=== PATIENT | female | born 1945 | race Caucasian/White ===

== ENCOUNTER → 2018-07-04 09:39 | Outpatient (CLI) | payer MEDICARE, OTHER, SELFPAY | PROVIDERS: Family Provider Family Medicine; PCP Family Medicine; Visit Provider Nurse Practitioner Women's Health | DX: Z12.31 Encounter for screening mammogram for malignant neoplasm of breast (principal); Z80.3 Family history of malignant neoplasm of breast | CPT/HCPCS: 77063; 77067 ==

== ENCOUNTER → 2019-07-10 10:19 | Outpatient (CLI) | payer MEDICARE, SELFPAY ==
--- NOTE | 2019-07-10 10:24 | BI_ITS ---
MAMMOGRAPHY - BILATERAL SCREENING REASON FOR EXAM: Female, 73 years old. Routine annual screening examination. PERTINENT HISTORY: Mother with breast cancer. TECHNIQUE: Digital bilateral breast guilherme (3D mammographic acquisition) in the CC and MLO projections. 2-D mediolateral oblique (MLO) and craniocaudad (CC) views of both breasts were obtained. CAD: Full Field Digital Mammography with Computer Added Detection was performed. COMPARISON: Comparison is made with prior examination July 04, 2018 and June 30, 2017. FINDINGS: Breast Composition: There are scattered areas of fibroglandular density. There are no dominant masses or suspicious calcifications. No other significant abnormalities are identified. There has been no significant change since the prior study. BI/SCREEN MAMM (CAD) W/GUILHERME BILAT IMPRESSION: Stable bilateral screening mammogram. Yearly follow-up mammogram recommended. (A) ASSESSMENT CATEGORY: BIRADS Category 2: Benign. A letter regarding these results will be sent to the patient by the facility within 30 days. Approximately 10% of breast cancers are not detected by mammography. A normal mammogram should not delay biopsy of a clinically suspicious abnormality. [id number] Electronically Signed: Koko Rodrigues, at 11:21 EDT , Service support ,
== END ==
PROVIDERS: Family Provider Family Medicine; PCP Family Medicine; Referring Provider Nurse Practitioner Women's Health; Visit Provider Nurse Practitioner Women's Health
DX: Z12.31 Encounter for screening mammogram for malignant neoplasm of breast (principal)
CPT/HCPCS: 77063; 77067

== ENCOUNTER → 2020-07-09 07:44 | Outpatient (CLI) | payer MEDICARE, SELFPAY ==
[2019-08-09 08:58] VITALS: BMI 27.6
--- NOTE | 2020-07-09 07:47 | BI_ITS ---
MAMMOGRAPHY - BILATERAL SCREENING REASON FOR EXAM: Female, 74 years old. Routine annual screening examination. PERTINENT HISTORY: Mother with breast cancer. TECHNIQUE: Digital bilateral breast guilherme (3D mammographic acquisition) in the CC and MLO projections. 2-D mediolateral oblique (MLO) and craniocaudad (CC) views of both breasts were obtained. CAD: Full Field Digital Mammography with Computer Added Detection was performed. COMPARISON: Comparison is made with prior examination is 07/10/2019 and 07/04/2018. FINDINGS: Breast Composition: There are scattered areas of fibroglandular density. There are no dominant masses or suspicious calcifications. No other significant abnormalities are identified. There has been no significant change since the prior study. BI/SCREEN MAMM (CAD) W/GUILHERME BILAT IMPRESSION: Stable bilateral screening mammogram. Yearly follow-up mammogram recommended. (A) ASSESSMENT CATEGORY: BIRADS Category 1: Negative. A letter regarding these results will be sent to the patient by the facility within 30 days. Approximately 10% of breast cancers are not detected by mammography. A normal mammogram should not delay biopsy of a clinically suspicious abnormality. [id number] Electronically Signed: Koko Rodrigues, at 8:57 EDT , Service support ,
== END ==
PROVIDERS: PCP Family Medicine; Referring Provider Nurse Practitioner Women's Health; Visit Provider Nurse Practitioner Women's Health
DX: Z12.31 Encounter for screening mammogram for malignant neoplasm of breast (principal); Z80.3 Family history of malignant neoplasm of breast
CPT/HCPCS: 77063; 77067

== ENCOUNTER → 2021-07-16 11:18 | Outpatient (CLI) | payer MEDICARE, SELFPAY ==
--- NOTE | 2021-07-16 11:21 | BI_ITS ---
MAMMOGRAPHY - BILATERAL SCREENING REASON FOR EXAM: Female, 75 years old. Routine annual screening examination. PERTINENT HISTORY: Mother with breast cancer. TECHNIQUE: Digital bilateral breast guilherme (3D mammographic acquisition) in the CC and MLO projections. 2-D mediolateral oblique (MLO) and craniocaudad (CC) views of both breasts were obtained. CAD: Full Field Digital Mammography with Computer Added Detection was performed. COMPARISON: Comparison is made with prior examination of 07/09/2020 and 07/10/2019. FINDINGS: Breast Composition: There are scattered areas of fibroglandular density. There are no dominant masses or suspicious calcifications. No other significant abnormalities are identified. There has been no significant change since the prior study. BI/SCRN MAMM (CAD)W/GUILHERME BILAT IMPRESSION: Stable bilateral screening mammogram. Yearly follow-up mammogram recommended. (A) ASSESSMENT CATEGORY: BIRADS Category 1: Negative. A letter regarding these results will be sent to the patient by the facility within 30 days. Approximately 10% of breast cancers are not detected by mammography. A normal mammogram should not delay biopsy of a clinically suspicious abnormality. [id number] Electronically Signed: Koko Rodrigues MD at 11:55 EDT , Service support ,
== END ==
PROVIDERS: PCP Family Medicine; Referring Provider Nurse Practitioner Women's Health; Visit Provider Nurse Practitioner Women's Health
DX: Z12.31 Encounter for screening mammogram for malignant neoplasm of breast (principal); Z80.3 Family history of malignant neoplasm of breast
CPT/HCPCS: 77063; 77067

== ENCOUNTER → 2021-11-05 08:46 | Outpatient (CLI) | payer MEDICARE, SELFPAY ==
--- NOTE | 2021-11-05 08:49 | BD_ITS ---
STUDY: DUAL ENERGY X-RAY ABSORPTIOMETRY / DXA REASON FOR EXAM: Female, 75 years old. Postmenopausal TECHNIQUE: Bone Mineral Density (BMD) measurements of lumbar spine and bilateral hips were obtained. COMPARISON: None. FINDINGS: Lumbar Spine (L1-L4): g/cm2 (1.178) / T-score (1.5) / Z-score (3.7) Findings are suggestive of normal bone density with a low fracture risk. Left Femur Total: g/cm2 (1.046) / T-score (0.9) / Z-score (2.6) Left Femoral Neck: g/cm2 (0.786) / T-score (-0.6) / Z-score (1.4) Right Femur Total: g/cm2 (1.063) / T-score (1.0) / Z-score (2.7) Right Femoral Neck: g/cm2 (0.851) / T-score (0.0) / Z-score (2.0) BD/Dexa Bone Density Study IMPRESSION: The patient is considered normal as outlined below according to World Johny Organization (WHO) criteria with a low fracture risk. Reference Information: The T-score is the number of standard deviations above or below the standard which is normal for young adults at their peak bone mineral density. The World Health Organization (WHO) interprets the T-scores as follows: Above -1 Normal bone density Between -1 and -2.5 Osteopenia Equal to / or below -2.5 Osteoporosis As a practical clinical guideline, osteopenia may be graded as follows: Mild -1 through -1.5 Moderate -1.6 through -2.0 Severe -2.1 through -2.4 The Z-score is the number of standard deviations above or below age-matched controls. A Z-score of less than -1.5 would be considered abnormal. References: 1. NIH Osteoporosis and Related Bone Diseases www osteo.org 2. International Society for Clinical Densitometry www iscd.org 3. National Osteoporosis Foundation www nof.org Electronically Signed: Koko Rodrigues MD at 9:06 EST , Service support ,
== END ==
PROVIDERS: PCP Family Medicine; Referring Provider Nurse Practitioner Women's Health; Visit Provider Nurse Practitioner Women's Health
DX: Z78.0 Asymptomatic menopausal state (principal)
CPT/HCPCS: 77080

== ENCOUNTER → 2022-09-23 | Outpatient (CLI) | payer MEDICARE, SELFPAY ==
--- NOTE | 2022-09-23 12:18 | BI_ITS ---
MAMMOGRAPHY - BILATERAL SCREENING REASON FOR EXAM: Female, 76 years old. Routine annual screening examination. PERTINENT HISTORY: Mother with breast cancer. TECHNIQUE: Digital bilateral breast guilherme (3D mammographic acquisition) in the CC and MLO projections. 2-D mediolateral oblique (MLO) and craniocaudad (CC) views of both breasts were obtained. CAD: Full Field Digital Mammography with Computer Added Detection was performed. COMPARISON: Comparison is made with prior study dated 07/16/2021 and 07/09/2020. FINDINGS: Breast Composition: There are scattered areas of fibroglandular density. There are no dominant masses or suspicious calcifications. There is a 5.6 mm x 5 mm well-defined nodule in the upper anterior lateral aspect of the right breast. This most likely represents a small lymph node. Correlation with ultrasound is recommended. No other significant abnormalities are identified. BI/SCRN MAMM (CAD)W/GUILHERME BILAT IMPRESSION: 5.6 mm x 5 mm well-defined nodule in the upper anterior aspect the right breast as described. Correlation with ultrasound is recommended. ASSESSMENT CATEGORY: BIRADS Category 1: Negative. A letter regarding these results will be sent to the patient by the facility within 30 days. Approximately 10% of breast cancers are not detected by mammography. A normal mammogram should not delay biopsy of a clinically suspicious abnormality. [id number] Electronically Signed: Koko Rodrigues MD at 13:57 EST ,
== END | disposition home or self-care (01) ==
LOC: OPBI 12:17
PROVIDERS: PCP Family Medicine; Visit Provider Nurse Practitioner Women's Health
DX: Z12.31 Encounter for screening mammogram for malignant neoplasm of breast (principal); Z80.3 Family history of malignant neoplasm of breast
CPT/HCPCS: 77063; 77067

== ENCOUNTER → 2022-10-05 | Outpatient (CLI) | payer MEDICARE, OTHER, SELFPAY ==
--- NOTE | 2022-10-05 10:28 | US_ITS ---
STUDY: ULTRASOUND BREAST - RIGHT REASON FOR EXAM: Female, 76 years old. Abnormal screening mammogram. TECHNIQUE: Axial and longitudinal images of the RIGHT breast were performed with a high resolution ultrasound transducer. # OF IMAGES: 21 COMPARISON: Comparison is made with prior mammogram dated 09/23/2022. FINDINGS: RIGHT Breast: 6 mm x 5 mm x 4 mm hypoechoic irregular nodule at the 10 o''clock position of the breast at 2 cm from the nipple. Biopsy is recommended. There is also a 6 mm x 6 mm x 4 mm well-defined hypoechoic nodular density at the 11 o''clock position in the breast 4 cm from nipple. This most likely represents hemorrhagic cyst although tissue sampling is recommended. US/Breast Limited Unilateral IMPRESSION: 6 mm x 5 mm x 4 mm hypoechoic irregular nodule at the 10 o''clock position of the breast at 2 some some nipple. Biopsy recommended. 6 mm x 6 mm x 4 mm well-defined hypoechoic nodule at the 11 o''clock position of the breast at 4 cm from nipple. Tissue sampling is recommended. ASSESSMENT CATEGORY: BIRADS Category 4: Suspicious - Biopsy Should Be Considered. A letter regarding these results will be sent to the patient by the facility within 30 days. Electronically Signed: Koko Rodrigues MD at 12:25 EST ,
== END | disposition home or self-care (01) ==
LOC: OPBI 10:26
PROVIDERS: PCP Family Medicine; Referring Provider Nurse Practitioner Women's Health; Visit Provider Nurse Practitioner Women's Health
DX: N63.0 Unspecified lump in unspecified breast (principal); R92.2 Inconclusive mammogram
CPT/HCPCS: 76642

== ENCOUNTER → 2022-10-21 | Outpatient (CLI) | payer MEDICARE, OTHER, SELFPAY ==
--- NOTE | 2022-10-21 | IMM_PTH ---
PATIENT: GAIL ORTEGA LOC: [facility] U#:[id number] AGE/SX: 76/F ROOM: RE10/21/[address]: Dr. Bruce Domínguez MD : 1945 BED: DIS: 10/21/2022 SPEC #: [id number] RECD: 10/22/22 14:44 STATUS: ESA REQ #: [id number] TABITHA: 10/21/22 00:[address]: Bruce Domínguez DEPT: IMMUNOHISTOCHEMISTRY RECD BY: Orly Guerrero ENTERED: 10/22/22 14:45 SP TYPE: IMMUNO OTHR DR: Dr. Salomon Tong, Tissues: A - Right breast, NOS Procedures: CALPONIN-1 (add) CK5-6 (add) CK8 (add) ROMAN-2 (add) E-CAD (add) HER2 SHAILESH (add) OK (add) P40 (add) ER (initial) PHYSICIAN & INSTITUTION [address] [address] SPECIMEN INFORMATION: Tissue Source: A ? Right breast biopsy 10 o?clock, 2 cm from nipple Clinical Info: Right breast lesions x2 Specimen Number: [id number] CPT code: 86755, 38129 x7, 99645 x3 METHODOLOGY: Deparaffinized sections of prefer/formalin-fixed tissue or PAP/DQ stained slides are incubated with monoclonal/polyclonal antibodies/oligonucleotide probes. Localization is made via biotin free immunoperoxidase method. Appropriate controls are performed and reacted as expected. Results on target cell population are indicated in the following table: RESULTS: ANTIBODY / CLONE RESULT Block A P53 (DO-7) negative Ki-67 (30-9) positive, 15% CK8 (97rnulI10) positive CK5-6 (D5 & 1684) negative Calponin-1 (BG570T) negative P40 (BC28) negative E-Cad (ECH-6) positive ROMAN-2 (SP21) negative MORPHOMETRIC ANALYSIS ER (clone 6F11) 50%, weak to moderate intensity OK (clone 16/1E2) 55%, weak to moderate intensity Her-2Neu (clone CB11) 0-1+ The prognostic test for HER2 is performed on formalin-fixed paraffin embedded tissue. A 3+ (positive) staining pattern is defined as intense, homogeneous, complete, circumferential membranous staining in >10% of contiguous tumor cells. A similar weak (2+) staining pattern is interpreted as equivocal. SWATI follow-up testing is recommended for all equivocal cases. Positivity/negativity for ER/OK is reported if > or < 1% of the tumor cells are immuno- reactive, respectively. The ASCO/CAP criteria is used for scoring. Reference: Journal of Clinical Oncology, 2013; 31:5635-4346 & 2010; 16:4831-4316. Duration of fixation: 10.5 Hrs; Sample Adequate: Yes. These assays have not been validated on decalcified tissues. Results should be interpreted with caution given the likelihood of false negativity on decalcified specimens. These tests were developed and their performance characteristics determined by [facility]. They may not have been cleared or approved by the U.S. Food and Drug Administration. The FDA has determined that such clearance or approval is not necessary. The above immunohistochemical/dualISH markers are ordered and reviewed by the Pathologist. INTERPRETATION: A. Right breast biopsy at 10 o?clock, core biopsy: Invasive ductal carcinoma, nuclear grade I. Positive for estrogen receptors (favorable prognostic indicator). Positive for progesterone receptors (favorable prognostic indicator). Negative for overexpression of VFF3tmo. AM:kaity 10/25/2022
--- NOTE | 2022-10-21 07:51 | US_ITS ---
STUDY: ULTRASOUND BREAST - RIGHT REASON FOR EXAM: Female, 76 years old. Ultrasound guided breast biopsy. TECHNIQUE: Axial and longitudinal images of the RIGHT breast were performed with a high resolution ultrasound transducer. # OF IMAGES: 0 COMPARISON: Comparison is made with prior ultrasound dated 10/05/2022. FINDINGS: RIGHT Breast: Under direct sonographic guidance, the surgeon performed 3 core biopsies of the 6 mm x 5 mm x 4 mm hypoechoic nodule at the 10 o''clock position of the breast at 2 cm from the nipple. IMPRESSION: Ultrasound guided biopsy of the 6 mm x 5 mm x 4 mm hypoechoic nodule at the 10 o''clock position of the breast at 2 cm from the nipple. ASSESSMENT CATEGORY: BIRADS Category 2: Benign. A letter regarding these results will be sent to the patient by the facility within 30 days. Electronically Signed: Koko Rodrigues MD at 15:21 EST , STUDY: ULTRASOUND BREAST - RIGHT REASON FOR EXAM: Female, 76 years old. Ultrasound guided breast biopsy. TECHNIQUE: Axial and longitudinal images of the RIGHT breast were performed with a high resolution ultrasound transducer. # OF IMAGES: 0 COMPARISON: Comparison is made with prior sonogram dated 10/05/2022. FINDINGS: RIGHT Breast: Under sonographic guidance, the surgeon performed 4 core biopsies of the 6 mm x 6 mm x 4 mm hypoechoic solid nodule at the 11 o''clock position of the breast at 4 cm from the nipple. US/US Breast Biopsy 1st Lesion IMPRESSION: Successful ultrasound-guided core biopsies of the hypoechoic nodule at the left o''clock position of the breast at 4 cm from nipple. ASSESSMENT CATEGORY: BIRADS Category 2: Benign. A letter regarding these results will be sent to the patient by the facility within 30 days. Electronically Signed: Koko Rodrigues MD at 15:23 EST ,
--- NOTE | 2022-10-21 08:45 | BRBX_PTH ---
PATIENT: GAIL ORTEGA LOC: [facility] U#:[id number] AGE/SX: 76/F ROOM: RE10/21/[address]: Dr. Bruce Domínguez MD : 1945 BED: DIS: 10/21/2022 SPEC #: [id number] RECD: 10/21/22 09:21 STATUS: ESA REQ #: [id number] TABITHA: 10/21/22 08:[address]: Bruce Domínguez DEPT: SURGICAL PATHOLOGY RECD BY: Viridiana Javed ENTERED: 10/21/22 11:22 SP TYPE: BREAST BX OTHR DR: Dr. Salomon Tong, DO Tissues: A - Right breast, NOS B - Right breast, NOS Procedures: Surgery Specimen Level IV HEADER OPERATION: Right breast biopsy PRE-OP DIAGNOSIS: Right breast lesions x2 TISSUE SUBMITTED: A - Right breast biopsy 10 o?clock, 2 cm from nipple, B - Right breast biopsy 11 o?clock, 4 cm from nipple MICROSCOPIC DIAGNOSIS A. Right breast at 10 o?clock, needle core biopsy: Invasive ductal carcinoma with the follow characteristics: Nuclear grade - 1/3 Maximal length ? 5 mm See comment. B. Right breast at 11 o?clock, needle core biopsy: Fibrocystic change. AM:kaity 10/22/2022 COMMENT A. Immunohistochemistry ([id number]) supports the above diagnosis. Case has been reviewed in consultation with Dr. Davis who concurs with the above diagnosis. IDC:SJ MICROSCOPIC DESCRIPTION Slides are reviewed. GROSS DESCRIPTION A - Received in fixative is one container labeled with the patient's name and designated right breast biopsy 10 o?clock, 2 cm from nipple. The specimen consists of two elongated fragments of pang-yellow fibroadipose tissue that in aggregate measure 1 x 0.2 x 0.1 cm. The entire specimen is submitted in one cassette. B - Received in fixative is one container labeled with the patient's name and designated right breast biopsy 11 o?clock, 4 cm from nipple. The specimen consists of two elongated fragments of pang-yellow fibroadipose tissue that in aggregate measure 2.5 x 1 x 0.1 cm. The entire specimen is submitted in one cassette. / ALEJANDRO:kaity 10/21/2022 TC: 0 CPT: 12556 x2
--- NOTE | 2022-10-21 10:30 | PCM.OP.PRO ---
Procedure Report Date of Procedure: 10/21/22 Procedure: Core needle biopsy of right breast for BI-RADS 4 lesions x2 Description: After a detailed discussion regarding the risks and benefits of the biopsy procedure, the patient positioned supine in the exam chair. Formal, written consents were obtained prior to positioning. Ultrasound was used to localize the lesions in the upper outer quadrant of the right breast. Locally 1% lidocaine was infiltrated about the 10:00 mass mass using ultrasound guidance. Once the area was sufficiently anesthetized, a small stab incision was made in the skin and the mammotome core needle device was introduced percutaneously. Ultrasound was used to guide the tip of the device to the inferior border of the suspicious lesion. Then the mass was serially sampled with 4 cores which were placed in solution for pathologic processing. A marking clip with a coil shaped was then placed under ultrasound guidance in the lateral aspect of the mass. I then localized the 11:00 mass and proceeded to locally anesthetized the area with 1% lidocaine under ultrasound guidance. Here the tissue appeared denser and the mass itself appeared firmer so I elected to proceed with the Flypaper Cormax device. Under ultrasound guidance the needle was positioned just outside and lateral of the mass and deployed resulting in a nice tissue core. This procedure was repeated, but unfortunately the device malfunctioned and we did not get a core so it was repeated a second time?this time resulting in another complete tissue core which was submitted for pathology. A second marker?this time he twisted ribbon confirmation?was placed just lateral to this mass and the volleyball player obtained a industrial relations representative picture of this marker. Pressure was applied until hemostasis was obtained. The skin was cleaned and Steri-Strips were applied over the stab incision for the biopsy procedure. Patient tolerated the procedure with no complications. EBL: Less than 5 mL Complications: None
== END | disposition home or self-care (01) ==
LOC: OPUS 07:48
PROVIDERS: PCP Family Medicine; Visit Provider Surgery
DX: N63.11 Unspecified lump in the right breast, upper outer quadrant (principal)
CPT/HCPCS: 19083; 19084; 88305; 88341; 88342

== ENCOUNTER 2022-11-10 08:55 | Day surgery (SDC) | payer MEDICARE, OTHER, SELFPAY ==
--- NOTE | 2022-11-10 | IMM_PTH ---
PATIENT: GAIL ORTEGA LOC: [facility] [place] U[place][id number] AGE/SX: 76/F ROOM: RE11/10/[address]: Dr. Bruce Domínguez MD : 1945 BED: DIS: 11/10/2022 SPEC #: [id number] RECD: 11/15/22 14:46 STATUS: ESA REQ #: [id number] TABITHA: 11/10/22 00:[address]: Bruce Domínguez DEPT: IMMUNOHISTOCHEMISTRY RECD BY: Orly Guerrero ENTERED: 11/15/22 14:47 SP TYPE: IMMUNO OTHR DR: Dr. Salomon Tong, Tissues: A - Axillary lymph node, NOS B - Right breast, NOS Procedures: CK8 (initial) CK7 (add) CK8 (add) E-CAD (add) Pankeratin (add) CK7 (initial) PHYSICIAN & INSTITUTION [place] [address] SPECIMEN INFORMATION: Tissue Source: A ? Right sentinel node x2, B ? Right breast lump tissue Clinical Info: Right breast cancer Specimen Number: [id number] A1, A2, B5 & B6 CPT code: 29052 x2, 49059 x6 METHODOLOGY: Deparaffinized sections of prefer/formalin-fixed tissue or PAP/DQ stained slides are incubated with monoclonal/polyclonal antibodies/oligonucleotide probes. Localization is made via biotin free immunoperoxidase method. Appropriate controls are performed and reacted as expected. Results on target cell population are indicated in the following table: RESULTS: ANTIBODY / CLONE RESULT Block A1 CK7 (OV-TL12/30) negative AE1-3 (AE1/AE3/PCK26) negative Block A2 CK7 (OV-TL12/30) negative AE1-3 (AE1/AE3/PCK26) negative Block B5 CK8 (13inxlN11) positive E-Cad (ECH-6) positive Block B6 CK8 (46hmuwL39) positive E-Cad (ECH-6) positive These tests were developed and their performance characteristics determined by [facility]. They may not have been cleared or approved by the U.S. Food and Drug Administration. The FDA has determined that such clearance or approval is not necessary. The above immunohistochemical/dualISH markers are ordered and reviewed by the Pathologist. INTERPRETATION: A. Right sentinel node x2, biopsy: Two out of two lymph nodes, negative for metastatic carcinoma. B. Right breast lump tissue: Invasive ductal carcinoma. SJ:kaity 11/16/2022
--- NOTE | 2022-11-10 | AXNB_PTH ---
PATIENT: GAIL ORTEGA LOC: [facility] [place] U#:[id number] AGE/SX: 76/F ROOM: RE11/10/[address]: Dr. Bruce Domínguez MD : 1945 BED: DIS: 11/10/2022 SPEC #: [id number] RECD: 11/10/22 15:01 STATUS: ESA RE #: [id number] TABITHA: 11/10/22 00:[address]: Bruce Domínguez DEPT: SURGICAL PATHOLOGY RECD BY: Orly Guerrero ENTERED: 11/10/22 15:53 SP TYPE: AX NODE BX OTHR DR: Dr. Salomon Tong DO Tissues: A - Axillary lymph node, NOS B - Right breast, NOS C - Right breast, NOS Procedures: Frozen Section (charge) Frozen Section Add'l ([facility]) Surgery Specimen Level IV Surgery Specimen Level V HEADER OPERATION: Right breast lumpectomy, stereotactic needle localization, sentinel lymph node PRE-OP DIAGNOSIS: Right breast cancer TISSUE SUBMITTED: A - Right sentinel node x2, FS, B - Right breast lump tissue, short stitch - superior, long stitch - lateral, C - Additional breast tissue, short stitch - superior margin, long stitch - lateral margin FROZEN SECTION DIAGNOSIS A. Right sentinel lymph nodes, biopsy: Two out of two lymph nodes, negative for metastatic carcinoma. :kaity 11/10/2022 MICROSCOPIC DIAGNOSIS A. Right sentinel lymph nodes, biopsy: Two out of two lymph nodes, negative for metastatic carcinoma. See comment. B. Right breast, lumpectomy with needle localization: Invasive ductal carcinoma. See cancer summary in the comment section. C. Additional breast tissue: Negative for carcinoma. :kaity 11/15/2022 COMMENT A. The lymph nodes are negative for metastatic carcinoma on multiple H & E levels and immunohisto-chemical stains for cytokeratins ([id number]). B. Immunohistochemistry ([id number]) supports the diagnosis of invasive ductal carcinoma. B. INVASIVE BREAST CANCER SUMMARY: Procedure - excision with needle localization Special Laterality - right Tumor Site ? 10 o?clock, 2 cm from nipple Tumor Size ? 0.7 x 0.8 cm (measured microscopically) Histologic type - invasive ductal carcinoma, no special type. Histologic Grade (Miriam grade): Glandular/tubular differentiation - score 3 Nuclear pleomorphism - score 1 Mitotic count ? score 1 Overall grade - 1 (score of 5) Tumor focality ? single focus of invasive carcinoma. Ductal carcinoma in situ ? not identified Lobular carcinoma in situ (LCIS) - not identified Tumor extension: Skin ? skin is not present. Nipple ? not applicable Skeletal muscle ? no skeletal muscle is present. Margins: Invasive carcinoma margin ? the tumor is 0.3 cm away from inferior margin and 0.4 cm away from the next closest lateral margin. Regional Lymph Nodes: Number of sentinel lymph nodes examined - 2 Total number of lymph nodes examined (sentinel and non-sentinel) - 2 Number of lymph nodes with macrometastases, micrometastases and isolated tumor cells - 0 Treatment effect - no known presurgical therapy. Lymphvascular invasion - not identified Dermal lymphvascular invasion - not applicable Distant metastasis - not applicable Additional pathologic findings ? fibrocystic changes and intraductal hyperplasia without atypia. Changes consistent with previous biopsy site. Ancillary studies - previously performed on section of tumor ([id number] / [id number]). ER ? positive (50%, weak to moderate intensity) TX - positive (55%, weak to moderate intensity) Her2 boris ? negative (0-1%) PATHOLOGIC STAGE: pT1b pN0(sn) pMx The above summary is in compliance with [employer] (CAP) Cancer Protocols Checklist and [place] [employer] Committee on Cancer (AJCC), Staging Manual, 8th Ed. This case is discussed with Dr. Domínguez on 11/16/22. Case has been reviewed in consultation with Dr. Chase who concurs with the above diagnosis. IDC:AM MICROSCOPIC DESCRIPTION Slides are reviewed. GROSS DESCRIPTION A - Received fresh for frozen section diagnosis labeled with the patient's name is a specimen designated right sentinel lymph node. The specimen consists of a piece of adipose tissue measuring 3 x 2.5 x 1 cm. Two nodules consistent with lymph nodes are identified measuring 0.8 and 1 cm in greatest dimension. The lymph nodes are submitted in entirety for frozen section diagnosis as follows: 1 ? one lymph node, 2 ? one bisected lymph node. Sections are submitted after additional fixation. / SJ:kaity 11/10/2022 B - Received fresh for intraoperative consultation labeled with the patient's name and designated right breast lump tissue. The specimen consists of a piece of fibroadipose tissue with needle localization measuring 4 x 4 x 2 cm. The specimen is oriented as follows: short stitch - superior, long stitch - lateral. The specimen is inked as follows: anterior - yellow, posterior - black, superior - blue, inferior - green, medial - red and lateral - orange. Serial sections reveal a hemorrhagic cavity measuring 0.7 cm in greatest dimension. This cavity is 0.2 cm away from the closest medial margin. No obvious mass is identified. This information is conveyed to the surgeon intraoperatively. Sections of the rest of the specimen reveal pang-yellow adipose cut surfaces mixed with pang-white fibrous areas. The entire specimen is submitted in nine cassettes. Sections are submitted after additional fixation. / SJ:kaity 11/11/2022 C - Received in fixative is one container labeled with the patient's name and designated additional breast tissue, short stitch - superior margin, long stitch - lateral margin. The specimen consists of a piece of fibroadipose tissue measuring 2.5 x 2 x 1 cm. The specimen is inked as follows: anterior - yellow, posterior - black, superior - blue, inferior - green, medial - red and lateral - orange. Sections do not reveal any mass lesion. The specimen is serially sectioned and does not reveal any mass lesion. The entire specimen is submitted in two cassettes. Sections are submitted after additional fixation. / SJ:kaity 11/11/2022 TC:0 CPT: 05419 x2, 85955, 59448, 18423, 13621 ADDENDUM ADDENDUM ADDENDUM ADDENDUM ADDENDUM ADDENDUM ADDENDUM ADDENDUM 12/14/2022 14:29 ADDENDUM 12/14/2022 14:29 ADDENDUM 12/14/2022 14:29 ADDENDUM 12/14/2022 14:29 ADDENDUM 12/14/2022 14:29 An order for Oncotype testing was received from Dr. Villagomez. This necessitated case review, block and slide selection by pathologist at [facility]. Breast Cancer Recurrence Score = 28 Results of the complete Oncotype testing ([employer] report) are viewable in EMR under: Reports - Pathology - Lab Pathology Report, Scanned.
[2022-11-10 09:25] VITALS: BP 164/70; PULSE 89; RESP 16; TEMP 36.4; O2SAT 100; BMI 25.3
--- NOTE | 2022-11-10 09:30 | NM_ITS ---
PROCEDURE: NUCLEAR MEDICINE Injection [place] Node - RIGHT breast(s). REASON FOR EXAM: Female, 76 years old. Right breast cancer. TECHNIQUE: [place] node localization using radionuclide methods of the RIGHT breast(s) was performed following subcutaneous administration of 1.1 mCi of of sulfur colloid Tc-99m. COMPARISON STUDIES : US - comparison made with prior ultrasound of the right breast dated 10/21/2022. FINDINGS: 1.1 mCi of technetium labeled sulfur colloid was injected subcutaneously in 4 equal aliquots in the right periareolar region. NM/Lymph Node Injection Only IMPRESSION: Subcutaneous injection of 1.1 mCi of technetium sulfur colloid in 4 equal aliquots in the periareolar region. Electronically Signed: Koko Rodrigues MD at 10:24 EST ,
[2022-11-10] MEDS: Lactated Ringers 1,000 ML 15 ML IV ×2 (09:32→16:30)
--- NOTE | 2022-11-10 11:37 | BI_ITS ---
SURGICAL BREAST SPECIMEN RADIOGRAPH CLINICAL: Document presence of tissue clip marker in biopsy specimen. FINDINGS: Specimen shows presence of tissue clip marker. Electronically Signed: Koko Rodrigues MD at 15:49 EST , BI/Breast Biopsy Specimen IMPRESSION: undefined
--- NOTE | 2022-11-10 13:08 | HP.PCM_ITS ---
History and Physical Date of Admission: 11/10/22 Date of Service:? 11/04/22 MR#: [id number] Acct: [id number] Name:GAIL BAL Rep #: [id number] : 1945 ? ? Provider: Dr. Bruce Domínguez MD Age/Sex:? 76/F ? ? 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 History of colonoscopy (~2013) Family History? Mother Breast cancer Social History? Smoking Status:? Never smoker alcohol intake:? never substance use type:? does not use caffeine:? Yes what type of physical activity do you participate in:? walking frequency:? 3-4 times per week duration:? 15-30 minutes/day seatbelt use:? always do you feel safe at home:? Yes additional social history:? -Kian Patient and are both retired HPI HPI HPI: Patient is a 76-year-old female who underwent ultrasound-guided left breast biopsy x2 on 10/21/2022 for BI-RADS 4 lesions x2.? The lesion biopsied at the 10 o'clock position returned positive for infiltrating ductal carcinoma grade 1, ER positive MD positive HER2/boris negative.? She presents today with her for follow-up of the biopsy and discussion of surgical options.? She states that her biopsy site initially showed significant bruising, but now appears much improved.? She has no pain from the site. Exam Const General: cooperative and anxious Chest Other: Mild yellowing of the skin near the lateral poke holes of the right breast.? Ultrasound exam is made of the right breast and I believe I can distinguish one of our 2 biopsy markers, but I am still uncertain given there are hyperechoic densities in the region of the breast biopsy probably representing subcutaneous hematoma. Assessment and Plan Assessment and Plan (1) Breast cancer in female: ?Status:?Acute ?Comment: This is a 76-year-old female with recently diagnosed right breast cancer by core needle biopsy.? Complete pathologic description was invasive ductal carcinoma, nuclear grade 1.? Receptor status: ER positive, MD positive, HER2/boris negative.? There is positivity chemo patient's 10:00 biopsy site.? Maximal dimension of the cancer by biopsy was 5 mm.? Given this small size, I offered patient surgical treatment options of simple mastectomy versus lumpectomy and sentinel lymph node biopsy.? I did recommend the latter to the patient, and she quickly stated this was her preference.? I described that lumpectomy would have to be accompanied by radiation to ensure a equivalent recurrence risk with mastectomy.? I also discussed the process for using a dual tracer with the sentinel lymph node biopsy and the need for possible axillary lymph node dissection if no node traced.? Unfortunately by exam with ultrasound I am not able to reliably identify patient's biopsy markers so therefore patient will require stereotactic placement of the wire for mass localization preoperatively.? This, too, was described to the patient.? Lastly I described how the above procedure will provide us with staging information that will be important for determining her need for adjuvant therapy and would provide guidance for an oncology consultation.? Both patient and her spouse were given the opportunity to ask questions and all were answered to their satisfaction. ?Plan: Right breast lumpectomy via wire localization with sentinel lymph node biopsy using dual tracer (scintigraphy and blue dye) at first mutually agreeable date Assessment & Plan Assessment/Plan (1) Breast cancer in female: PLAN: Patient visited in the stereotactic suite where she confirms that she is ready for today's procedure and denies any questions. She denies any interval health changes. Wire localization was performed a stereotactic imaging just to the medial and inferior aspect of patient's biopsy marker. This localization procedure proceeded in uncomplicated fashion after instillation of local anesthetic. Therefore we will plan to proceed with wire localized lumpectomy and sentinel lymph node biopsy given the indication of right infiltrating ductal carcinoma.
[2022-11-10] MEDS: Clindamycin 900 MG/50 ML BAG 75 MG IV (13:19)
[2022-11-10] MEDS: Isosulfan Blue 1% 5 ML Vial (13:35)
[2022-11-10] MEDS: 0.9% Normal Saline (Pres. free 10 ML Vial (13:38)
[2022-11-10] MEDS: Bupiv/Epi 0.5% Mpf 30 ML Vial (16:20)
--- NOTE | 2022-11-10 16:26 | DCINST_ITS ---
Discharge Instructions Diet Discharge Diet: No restrictions Activity Discharge Activity: May Not Drive (for 24 hours post-procedure) May shower in (days): 2 Ice area for (Minutes): 20 Lifting Restrictions: No lifting greater than 15 pounds with affected extremity for 2 weeks after Keep extremity elevated above heart level: Operative Extremity Dressing / Incision Call your doctor if your incision/area has: Continuous Slow Oozing, Sudden Increased Bleeding, Increased Pain/ Swelling, Increased Redness, Foul Smelling Discharge and Swelling at the incision site Call your doctor if you observe: Fever of 101 or Higher Remove Dressing in: 2 days (Please leave Steri-Strips intact until they fall off spontaneously or are taken off at your follow-up visit) Cleanse incision/area with: Soap & Water Follow Up Care Please Follow Up With: Bruce Domínguez MD When: 7 to 10 days postop Test Results: Test results from this visit will be discussed in further detail at your follow- up appointment, if applicable. Discharge Plan Admission Primary Reason for Your Visit: Right breast cancer Attending Provider: Burce Domínguez Primary Care Provider: Salomon Tong Instructions Additional Instructions / Restrictions: Please use alternating doses of Tylenol and ibuprofen (dosing every 3 hours between an individual medication) for postoperative pain Discharge Orders/Prescriptions Prescriptions: Continued multivitamin with folic acid 1 TABLET tablet 1 tab PO DAILY calcium carbonate-vitamin D3 1 TAB tablet 1 tab PO DAILY@0800 Referrals / Follow Up: Salomon Tong DO [Primary Care Provider] - Disposition Disposition (needs filled in before D/C Order can be placed): Home, Self Care
--- NOTE | 2022-11-10 16:26 | PCM.OPRPT ---
Report of Operation Date of Procedure: 11/10/22 Pre-Operative Diagnosis: Right breast cancer Post-Operative Diagnosis: Same Surgery/Procedure Performed:: 1. Stereotactic wire localization of breast mass 2. Right breast lumpectomy 3. Westhoff lymph node biopsy with dual tracer technique Description of Surgical Findings:: ? Appropriate placement of wire just deep and medial to prior biopsy clip ? Right breast lumpectomy specimen containing biopsy clip and biopsy cavity ? New medial margin taken given that original margin was located 2 mm from medial portion of the biopsy cavity ? 2 negative sentinel lymph nodes with blue tracer and neoprobe counts of 1183 and 29 Surgeon: Bruce Domínguez safe and vault installer: Sadia Mulligan safe and vault installer: Gabriela Mcclain Type of Anesthesia: General/Supplemental Anesthesiologist: Gilbert Vance Special Medications: 1.1 mCi technetium labeled sulfur colloid and 5 mL isosulfan blue 1% Specimen's removed: 1. Westhoff lymph node 2. Lumpectomy specimen 3. New medial margin Drains: None Estimated Blood Loss (mL): 15 Description of Procedure: Westhoff lymph node synoptic Operation performed with curative intent: Yes Tracer used to identify sentinel nodes: 1.1 mCi technetium labeled sulfur colloid and 5 mL isosulfan blue 1% Removal of all nodes present at the end of a dye?failed lymphatic channel removed: Yes All significant radioactive nodes removed: Yes All palpably suspicious lymph nodes removed: Yes After appropriate identification the patient was positioned on the mammography table and the biopsy clip was targeted. We determined that a cranial caudal approach to wire localization would be most appropriate given its position in relation to the areolar complex. Stereo images were then obtained of the clip and the wire was placed just medial and inferior to the biopsy clip. Post procedure x-rays and mammography were obtained to confirm this position. Wire was then clipped and the patient was brought to the operating room where her preoperative antibiotics were completed. She was positioned supine on the operating room table with her arms out and underwent induction with anesthesia. An LMA airway was placed. Patient's right breast was exposed and the isosulfan blue was injected in the 4 quadrants of the areola with 2 mL in the upper outer quadrant and 1 mL in the remaining 3 quadrants. These aliquots of isosulfan blue were followed by subcutaneous injection of sterile saline with 2 mL volumes in each quadrant. The areolar complex was then massaged for a period of 3 minutes. The patient's right breast and axilla were then prepped and draped in usual sterile fashion. Formal timeout was conducted to confirm both patient and procedure. Local anesthetic was instilled in the appointed location for the sentinel lymph node biopsy incision (along the inferior border of the axilla in the hairbearing area of skin) and an approximately 5 cm cm transverse incision was made sharply. This was deepened with the use of electrocautery through Marizol's and clavipectoral fascia. The neoprobe device was used to guide the trajectory of further blunt dissection. I initially identified a blue lymphatic channel and a terminal lymph node with moderate radioactivity and a final 10-second count of 29. However, as I reexamined the axilla with the neoprobe there appeared to be additional radioactivity separate from the activity within the breast tissue. Indeed as I probed just underneath the pectoralis major tendon I identified a much higher signal and a second blue lymphatic channel. Using blunt dissection to trace this lymphatic channel distally I did identify a bright blue lymph node. Ex vivo 10-second count on this lymph node was 1183. The neoprobe was then reinserted once more into the axilla, but no further radioactivity was detected. I also did not palpate any additional suspicious lymphadenopathy, nor see any additional blue lymphatic tissue. The lymph nodes were sent to pathology for frozen section and the biopsy cavity was irrigated with sterile water and inspected for hemostasis. The latter was achieved with selective electrocautery and the cavity was packed while we transition to the patient's breast. A curvilinear incision was made in the upper outer quadrant of the areolar border. This was deepened through the dermal layer with electrocautery and gradually cutaneous flap was released laterally towards the patient's localization wire. Identifying the wire, it was then pulled into our periareolar incision. The wire was then followed to its anchored position in the breast tissue taking care to obtain wider lateral and medial margins where both the clip and suspicious breast tissue resided, respectively. Once I had achieved the appropriate circumferential excision and confirmed our depth, the breast tissue was amputated from the cavity. It was oriented such that the short stitch marked the superior margin and the long stitch garcia the lateral margin. It was then passed off the field for mammography and pathology. Mammography confirmed that the images were in our PACS system and I examined these images and identified both the biopsy clip and the wire within the specimen. Awaiting the results of the pathologic analysis, I changed gloves and returned to the axillary incision which was closed in layers using 3-0 Vicryl and 4-0 Monocryl. Shortly thereafter pathology called to say that they had not identified a discrete mass, but did see the entire biopsy cavity and that this cavity resided 2 mm from the medial margin?representing the closest margin on the specimen. We jointly agreed to submit a new medial margin for permanent pathology. This margin was grasped with a Allis clamp and an additional 1 cm breast tissue was removed with electrocautery. This new medial margin was again oriented short superior, long lateral with marking sutures and submitted, as above, for permanent section. Then the biopsy cavity was palpated and I did not identify any suspicious mass lesions. The cavity was irrigated with sterile water and inspected for hemostasis. 4 medium clips were used to az the posterior extent of our biopsy cavity for later radiation targeting. The cavity was then closed at a deep dermal level with a running 3-0 Vicryl. Then the skin was closed in a subcuticular fashion with 4-0 Monocryl. Steri-Strips and OpSite bandages were applied at both the axillary and breast incisions. The patient was awoken from anesthetic without issue and delivered to PACU for ongoing care. Complications none Admit VTE Documentation VTE Mechan Device Prophylaxis: SCD's
[2022-11-10 16:31] VITALS: BP 122/55; BP 164/70; PULSE 88; RESP 16; TEMP 36.2; O2SAT 96
[2022-11-10 16:45] VITALS: BP 136/63; BP 164/70; PULSE 91; RESP 16; O2SAT 98
[2022-11-10 17:00] VITALS: BP 131/62; BP 164/70; PULSE 89; RESP 16; TEMP 36.5; O2SAT 97
[2022-11-10 17:36] VITALS: BP 164/70
== END 2022-11-10 17:51 | disposition home or self-care (01) ==
PROVIDERS: PCP Family Medicine; Referring Provider Surgery; Visit Provider Surgery
PROC: (CPT 19301; principal; 2022-11-10 12:45)
DX: C50.911 Malignant neoplasm of unspecified site of right female breast (principal); Z17.0 Estrogen receptor positive status [ER+]; Z80.3 Family history of malignant neoplasm of breast
CPT/HCPCS: 19301; 38525; 19283; 00404; 19281; 38792; 76098; 88305; 88307; 88331; 88332; 88341; 88342; A9541; J7120; J2405; J3490; Q9968

== ENCOUNTER → 2023-09-27 | Outpatient (CLI) | payer MEDICARE, OTHER, SELFPAY ==
--- NOTE | 2023-09-27 09:00 | BI_ITS ---
MAMMOGRAPHY - BILATERAL SCREENING REASON FOR EXAM: Female, 77 years old. Routine annual screening examination. PERTINENT HISTORY: Personal history of breast cancer. Prior right lumpectomy. Mother with breast cancer. TECHNIQUE: Digital bilateral breast guilherme (3D mammographic acquisition) in the CC and MLO projections. 2-D mediolateral oblique (MLO) and craniocaudad (CC) views of both breasts were obtained. CAD: Full Field Digital Mammography with Computer Added Detection was performed. COMPARISON: Comparison is made with prior study dated September 23, 2022 and July 16, 2021. FINDINGS: Breast Composition: There are scattered areas of fibroglandular density. There are no dominant masses or suspicious calcifications. The patient is status post lumpectomy in the retroareolar region of the right breast with resultant postoperative changes. Surgical clips also seen in the right axilla. No other significant abnormalities are identified. BI/SCRN MAMM (CAD)W/GUILHERME BILAT IMPRESSION: Status post right lumpectomy with resultant postoperative deformity. Yearly follow-up mammogram recommended. (A) ASSESSMENT CATEGORY: BIRADS Category 2: Benign. A letter regarding these results will be sent to the patient by the facility within 30 days. Approximately 10% of breast cancers are not detected by mammography. A normal mammogram should not delay biopsy of a clinically suspicious abnormality. [id number] Electronically Signed: Koko Rodrigues MD at 12:43 EST ,
== END | disposition home or self-care (01) ==
LOC: OPBI 08:58
PROVIDERS: PCP Family Medicine; Referring Provider Surgery; Visit Provider Surgery
DX: Z12.31 Encounter for screening mammogram for malignant neoplasm of breast (principal); Z80.3 Family history of malignant neoplasm of breast; Z85.3 Personal history of malignant neoplasm of breast
CPT/HCPCS: 77063; 77067

== ENCOUNTER → 2023-11-10 | Outpatient (CLI) | payer MEDICARE, OTHER, SELFPAY ==
--- NOTE | 2023-11-10 08:22 | BD_ITS ---
STUDY: DUAL ENERGY X-RAY ABSORPTIOMETRY / DXA REASON FOR EXAM: Female, 77 years old. Postmenopausal TECHNIQUE: Bone Mineral Density (BMD) measurements of lumbar spine and bilateral hips were obtained. COMPARISON: Comparison is made with prior study dated November 05, 2021. FINDINGS: Lumbar Spine (L1-L4): g/cm2 (1.188) / T-score (1.9) / Z-score (4.2) Findings are suggestive of normal bone density with a low fracture risk. Left Femur Total: g/cm2 (1.068) / T-score (1.0) / Z-score (2.9) Left Femoral Neck: g/cm2 (0.796) / T-score (-0.5) / Z-score (1.6) Right Femur Total: g/cm2 (1.077) / T-score (1.1) / Z-score (2.9) Right Femoral Neck: g/cm2 (0.891) / T-score (0.4) / Z-score (2.5) The T-Scores on the most recent prior examination were: Lumbar Spine (L1-L4): There has been improvement of bone density since the previous examination. Left Femur Total: which represents an improvement of 2.1%. Right Femur Total: which represents an improvement of 1.3%. BD/Dexa Bone Density Study IMPRESSION: The patient is considered normal as outlined below according to World Johny Organization (WHO) criteria with a low fracture risk. There has been improvement of bone density since the previous examination. Reference Information: The T-score is the number of standard deviations above or below the standard which is normal for young adults at their peak bone mineral density. The World Health Organization (WHO) interprets the T-scores as follows: Above -1 Normal bone density Between -1 and -2.5 Osteopenia Equal to / or below -2.5 Osteoporosis As a practical clinical guideline, osteopenia may be graded as follows: Mild -1 through -1.5 Moderate -1.6 through -2.0 Severe -2.1 through -2.4 The Z-score is the number of standard deviations above or below age-matched controls. A Z-score of less than -1.5 would be considered abnormal. References: 1. NIH Osteoporosis and Related Bone Diseases www osteo.org 2. International Society for Clinical Densitometry www iscd.org 3. National Osteoporosis Foundation www nof.org Electronically Signed: Koko Rodrigues MD at 14:54 EST ,
--- OUTSIDE RECORDS SUMMARY | 2023-11-10 08:47 | XMS RPT_ITS | CCD ---
Author Name Unknown Address [address] [place] [address] Organization [facility] Care Team Providers Care Content Development Specialist Name Role Phone Lamar MATTHEWS, Natalie Snow Unavailable Alycia MCQUEEN, Salomon Robledo Primary Care Provider [phone] Marcel Villagomez DO Unavailable SALOMON TONG Primary Care Unavailable MARCEL VILLAGOMEZ Attending Unavailable LAURIE RUTLEDGE Referring Unavailable LAURIE RUTLEDGE Attending Unavailable SALOMON TONG Primary Care Unavailable LAURIE RUTLEDGE Attending Unavailable SALOMON TONG Primary Care Unavailable LAURIE RUTLEDGE Referring Unavailable LAURIE RUTLEDGE Attending Unavailable SALOMON TONG Primary Care Unavailable MARCEL VILLAGOMEZ Referring Unavailable SALOMON TONG Primary Care Unavailable MARCEL VILLAGOMEZ Referring Unavailable MARCEL VILLAGOMEZ Attending Unavailable Allergies Allergy Classification Reported Allergen(s) Allergy Type Date of Onset Reaction(s) Facility (2 sources) penicillin v drug allergy 7 [facility] (6 sources) Penicillins; Translations: [PENICILLINS] Propensity to adverse reactions 6 Work Phone: Medications Completed/Discontinued Medications Medication Drug Class(es) Dates Sig (Normalized) Sig (Original) anastrozole 1 mg oral tablet (2 sources) Aromatase Inhibitor Start: 01-13-2023 take 1 tablet by mouth once daily anastrozole (ARIMIDEX) 1 mg tablet Take 1 tablet by mouth once daily. 90 tablet 3 01/13/2023 Active Problems Problem Classification Problem Date Documented Date Episodic/Chronic Cancer of breast (6 sources) Malignant neoplasm of upper-outer quadrant of female breast; Translations: [Malignant neoplasm of upper-outer quadrant of right female breast] Onset: 11-30-2022 Chronic Thyroid disorders (5 sources) Goiter; Translations: [Nontoxic goiter, unspecified] Onset: 05-30-2012 05-30-2012 Chronic Unclassified (2 sources) Gynecologic examination ; Translations: [Encounter for gynecological examination (general) (routine) without abnormal findings] Onset: 07-05-2017 07-05-2017 Unclassified (3 sources) Screening mammography ; Translations: [Encounter for screening mammogram for malignant neoplasm of breast] Onset: 06-28-2017 06-28-2017 Results Test Name Value Interpretation Reference Range Facil ity Vital Signs Date Time Vital Sign Value Performing Clinician Facility 01-13-2023 07:52-0500 Body height 165.[address] PROJECT MANAGER.LIBRARIAN Work Phone: 01-13-2023 07:52-0500 Body temperature 97.7 [degF] Laurie Rutledge RD PROJECT MANAGER.LIBRARIAN Work Phone: 01-13-2023 07:52-0500 Body weight 69.[address] PROJECT MANAGER.LIBRARIAN Work Phone: 01-13-2023 07:52-0500 Diastolic blood pressure 85 mm[Hg] Pearce Rutledge RD PROJECT MANAGER.LIBRARIAN Work Phone: 01-13-2023 07:52-0500 Heart rate 87 /min Laurie Rutledge RD PROJECT MANAGER.LIBRARIAN Work Phone: 01-13-2023 07:52-0500 Systolic blood pressure 162 mm[Hg] Pearce Rutledge RD PROJECT MANAGER.LIBRARIAN Work Phone: 11-30-2022 14:54-0500 Body height 165.1 cm Marcel Lisai DO Work Phone: 11-30-2022 14:54-0500 Body temperature 98.6 [degF] Marcel Masci DO Work Phone: 11-30-2022 14:54-0500 Body weight 70.76 kg Marcel Masci DO Work Phone: 11-30-2022 14:54-0500 Diastolic blood pressure 82 mm[Hg] Marcel Gonzalezi DO Work Phone: 11-30-2022 14:54-0500 Heart rate 85 /min Marcel Villagomez DO Work Phone: 11-30-2022 14:54-0500 Systolic blood pressure 165 mm[Hg] Marcel Villagomez DO Work Phone: 07-05-2017 11:18-0400 BMI (Body Mass Index) 26.66 kg/m2 Natalie Newton NP [facility] 07-05-2017 11:18-0400 Body Temperature 97.7 [degF] Natalie Newton NP [facility] 07-05-2017 11:18-0400 BP Diastolic 82 mm[Hg] Natalie Newton NP [facility] 07-05-2017 11:18-0400 BP Systolic 177 mm[Hg] Natalie Newton NP [facility] 07-05-2017 11:18-0400 Height 165.1 cm Natalie Newton NP [facility] 07-05-2017 11:18-0400 Pulse (Heart Rate) 77 /min Natalie Newton NP [facility] 07-05-2017 11:18-0400 Respiratory Rate 16 /min Natalie Newton NP [facility] 07-05-2017 11:18-0400 Weight 72.67 kg Natalie Newton NP [facility] Encounters Encounter Date Encounter Type Care Provider Facility Start: 07-14-2023 End: 07-14-2023 ambulatory [facility] Facility:[facility] Start: 04-14-2023 Chart abstracting Ana Luisa Babb RN Hematology/Oncology Procedures Date Procedure Procedure Detail Performing Clinician Start: 07-05-2017 End: 07-05-2017 Pelvic & Breast Exam (Medicare) Natalie Newton NP Work Phone: Start: 06-29-2016 Mammography Marcel Villagomez DO Work Phone: Start: 09-12-2014 Colonoscopy Marcel Masci DO Work Phone: Plan of Treatment Date Care Activity Detail Author Start: 09-12-2024 Colonoscopy COLONOSCOPY Start: 09-12-2024 COLORECTAL CANCER SCREENING COLORECTAL CANCER SCREENING Start: 07-08-2023 Influenza vaccination INFLUENZA (Season Ended) [facility] Start: 11-07-2022 ADVANCE DIRECTIVE DISCUSSION ADVANCE DIRECTIVE DISCUSSION Start: 11-07-2022 DEPRESSION ASSESSMENT DEPRESSION ASSESSMENT Start: 07-08-2022 Influenza vaccination INFLUENZA (#1) Start: 06-29-2019 DIABETES SCREEN DIABETES SCREEN Start: 06-11-2019 LIPID SCREEN LIPID SCREEN Start: 07-05-2017 End: 07-05-2017 Appointment Appointment [facility] Start: 06-29-2017 Mammography MAMMOGRAM Start: 06-28-2017 End: 06-28-2017 Mammogram, screening Mammogram, Screening, both breasts [facility] Start: 2012 PNEUMOCOCCAL: 65+ (1 - PCV) PNEUMOCOCCAL: 65+ (1 - PCV) Start: 1997 SHINGRIX VACCINE (1 of 2) SHINGRIX VACCINE (1 of 2) Start: 1992 COLOGUARD (FIT-DNA) COLOGUARD (FIT-DNA) Start: [address] COLONOGRAPHY Start: 1992 FECAL OCCULT BLOOD FECAL OCCULT BLOOD Start: 1992 SIGMOIDOSCOPY SIGMOIDOSCOPY Start: 1966 Urine microalbumin profile DTAP,TDAP,TD (1 - Tdap) Start: 06-12-1946 COVID-19 VACCINE (#1) COVID-19 VACCINE (#1) [facility] Payers Date Payer Category Payer Unknown HOSPITAL/MEDICAL GENERIC MEDICAL GENERIC [id number] 2013-Present [phone] [address] [address] [place] [address] Indemnity [id number] 2013 Unknown [id number] 2012 Medicare MEDICARE MEDICAR E A AND B [id number] 2012-Present [phone] [place] [address] Medicare [id number] 2012 Medicare [id number] Social History Date Type Detail Facility [facility]: [facility] Work Phone: Start: 05-20-2011 Tobacco use and exposure Smokeless tobacco non-user Work Phone: Start: 06-23-2022 End: 04-14-2023 Alcohol intake Current non-drinker of alcohol (finding) Start: 1945 Sex Assigned At Not on file C [facility] Clinical Notes 11-22-2022 to 07-14-2023 Ana Luisa Babb RN - 04/14/2023 8:58 AM Elaina Rutledge APRN.CNP - 01/13/2023 8:12 AM ESTTelephone Encounter - Kiley Onofre - 2022 4:53 PM Cong Villagomez DO - 11/30/2022 3:15 PM EST Note Date & Type Note Facility 07-14-2023 Note HNO ID: [id number] Author: Laurie Rutledge APRN.NOE Service: ? Author Type: Nurse Practitioner Type: Progress Notes Filed: 07/14/2023 9:57 AM Note Text: Chief Complaint Patient presents with: Established Patient HPI: Jody Deluca is a 77 year old female who presents here today for follow up breast cancer. Per Dr. Villagomez's previous note: H/o screening mammogram at [facility] on 09/23/2022. There was a 5.6 x 5 mm well-defined nodule in the upper anterior aspect of the RIGHT breast likely representing a small lymph node. Ultrasound was recommended. The report of that study is not available. However, patient underwent an ultrasound-guided core needle biopsy on 10/21/2022. The procedure report describes that 3 core biopsies of a 6 x 5 x 4 mm hypoechoic nodule at the 10 o'clock position of the breast 2 cm from the nipple was successfully carried out. Pathology: Sample from the 10 o'clock position revealed invasive ductal carcinoma, nuclear grade 1/3. Second sample from 11 o'clock position revealed fibrocystic change. ER positive (50%, weak to moderate intensity) SD positive (55%, weak to moderate intensity) HER2 nu 0-1+ on IHC. Patient underwent right breast lumpectomy with stereotactic needle localization and sentinel lymph node biopsy on 11/10/2022. Pathology: A. Right sentinel lymph node biopsy- 2 of 2 lymph nodes negative for metastatic carcinoma. B. Right breast lumpectomy invasive ductal carcinoma Tumor size was 8 mm. Overall grade was 1. Single focus of disease. DCIS and LCIS not identified. Tumor did not extend to skin, nipple or skeletal muscle. Margins were negative. Closest was 3 mm from the inferior margin and 4 mm from the next closest lateral margin. A total of 2 lymph nodes, sentinel were examined. Both were negative for disease. There was no lymphovascular invasion. No dermal lymphovascular invasion. Oncotype DX test in detail with her. Recurrence score 28 indicating 17% risk of distant recurrence at 9 years. Benefit from chemotherapy potentially greater than 15%. -I recommended an adjuvant course of TC but after a balanced discussion of the potential benefits (bearing in mind the continuum of risk from recurrence score 25 up to 100 and uncertain validity in women over age 70) and risks, she declined adjuvant chemotherapy. I told her that was a very reasonable decision. RADIATION:Completed 01/05/23 Done at [facility]. No new concerns today. Pt. here today with her spouse. Appetite: Good. Energy level: Good. Denies fevers or recent illness. Resp:denies cough or sob Cardiac:denies chest pain/palpitations GI:denies abd pain, n/v, moving bowels regularly :denies dysuria/hematuria Extrem:denies pain Endo:hot flashes A couple per month-they are gone in a minute. Neuro:denies symptoms of neuropathy Skin:denies rashes Heme:denies bleeding The ROS is otherwise negative. Past medical history, appointments, medications, allergies reviewed. No changes. EXAM: BP 165/89 Pulse 86 Temp 36.4 ?C (97.6 ?F) Wt 68.9 kg (152 lb) SpO2 99% BMI 24.87 kg/m? APPEARANCE Well appearing, alert, in no acute distress, well-hydrated, well nourished. HEART RRR with normal S1 and S2, no murmurs LUNG clear to auscultation BREAST FEMALE no mass/nodule b/l LYMPH NODES No cervical lymphadenopathy, No supraclavicular lymphadenopathy, and No axillary lymphadenopathy. EXTREMITIES No edema NEURO Awake, alert and oriented x 3, Normal gait, and No involuntary motions. SKIN Skin color, texture, turgor normal, no suspicious rashes or lesions ASSESSMENT/PLAN: 1. Malignant neoplasm of upper-outer quadrant of right breast in female, estrogen receptor positive (HCC) - ICD9: 174.4, V86.0, ICD10: C50.411, Z17.0 - No concerning findings on exam. - Tolerating arimidex well. - Continue arimidex. - Discussed zometa again. Dental clearance form received. Zometa side effects reviewed again. Pt. plans to have a bone density ordered by [facility] and will send a my chart message once this is completed. The plan will be to start zometa at next OV with BMP-plan for every 6 months for a total of 6 doses. - Mammogram scheduled for at [facility] per Dr. Richmond. - Bone density per Natalie Newton. - Follow up in 5 months. - Pt. aware to call office with any questions/concerns. The patient indicates understanding of these issues and agrees with the plan. All documentation from previous visit of 04/14/23-Dr. Villagomez/myself was copied and pasted, documentation has been reviewed and edited as necessary for today's visit. Laurie Rutledge APRN.[facility] 04-14-2023 Note HNO ID: [id number] Author: Ana Luisa Babb RN Service: ? Author Type: Registered Nurse Type: Progress Notes Filed: 04/14/2023 8:59 AM Note Text: Clinical Trial Informed Consent AND Screening [facility] 1Y21 IRB: 22-840 Real World Treatment Experience of Patients with Breast, Lung, or GI Cancer or Multiple Myeloma Using Remote Symptom Monitoring Patient seen today to obtain clinical trial informed consent. Patient states she does not want to participate in the CAREVIVE study and declined consent. Ana Luisa Babb RN 8:28 AM April 14, 2023 [facility] 04-14-2023 Note HNO ID: [id number] Author: Laurie Rutledge APRN.NOE Service: ? Author Type: Nurse Practitioner Type: Progress Notes Filed: 04/14/2023 1:07 PM Note Text: Chief Complaint Patient presents with: Established Patient HPI: Jody Deluca is a 77 year old female who presents here today for follow up breast cancer. Per Dr. Villagomez's previous note: H/o screening mammogram at [facility] on 09/23/2022. There was a 5.6 x 5 mm well-defined nodule in the upper anterior aspect of the RIGHT breast likely representing a small lymph node. Ultrasound was recommended. The report of that study is not available. However, patient underwent an ultrasound-guided core needle biopsy on 10/21/2022. The procedure report describes that 3 core biopsies of a 6 x 5 x 4 mm hypoechoic nodule at the 10 o'clock position of the breast 2 cm from the nipple was successfully carried out. Pathology: Sample from the 10 o'clock position revealed invasive ductal carcinoma, nuclear grade 1/3. Second sample from 11 o'clock position revealed fibrocystic change. ER positive (50%, weak to moderate intensity) SD positive (55%, weak to moderate intensity) HER2 nu 0-1+ on IHC. Patient underwent right breast lumpectomy with stereotactic needle localization and sentinel lymph node biopsy on 11/10/2022. Pathology: A. Right sentinel lymph node biopsy- 2 of 2 lymph nodes negative for metastatic carcinoma. B. Right breast lumpectomy invasive ductal carcinoma Tumor size was 8 mm. Overall grade was 1. Single focus of disease. DCIS and LCIS not identified. Tumor did not extend to skin, nipple or skeletal muscle. Margins were negative. Closest was 3 mm from the inferior margin and 4 mm from the next closest lateral margin. A total of 2 lymph nodes, sentinel were examined. Both were negative for disease. There was no lymphovascular invasion. No dermal lymphovascular invasion. Oncotype DX test in detail with her. Recurrence score 28 indicating 17% risk of distant recurrence at 9 years. Benefit from chemotherapy potentially greater than 15%. -I recommended an adjuvant course of TC but after a balanced discussion of the potential benefits (bearing in mind the continuum of risk from recurrence score 25 up to 100 and uncertain validity in women over age 70) and risks, she declined adjuvant chemotherapy. I told her that was a very reasonable decision. RADIATION:Completed 01/05/23 Done at [facility]. No new concerns today. Pt. here today with her spouse. Appetite: Good. Energy level: Good. Denies fevers or recent illness. Resp:denies cough or sob Cardiac:denies chest pain/palpitations GI:denies abd pain, n/v, moving bowels regularly :denies dysuria/hematuria Extrem:denies pain Endo:denies hot flashes Neuro:denies symptoms of neuropathy Skin:denies rashes Heme:denies bleeding The ROS is otherwise negative. Past medical history, appointments, medications, allergies reviewed. No changes. EXAM: BP 135/79 Pulse 77 Temp 36.6 ?C (97.8 ?F) Ht 166.5 cm (5' 5.55 ) Wt 69.4 kg (153 lb) BMI 25.03 kg/m? APPEARANCE Well appearing, alert, in no acute distress, well-hydrated, well nourished. HEART RRR with normal S1 and S2, no murmurs LUNG clear to auscultation BREAST FEMALE No mass/nodule b/l LYMPH NODES No cervical lymphadenopathy, No supraclavicular lymphadenopathy, and No axillary lymphadenopathy. ABDOMEN bowel sounds normoactive, soft, non-tender EXTREMITIES No edema NEURO Awake, alert and oriented x 3, Normal gait, and No involuntary motions. SKIN Skin color, texture, turgor normal, no suspicious rashes or lesions ASSESSMENT/PLAN: 1. Malignant neoplasm of upper-outer quadrant of right breast in female, estrogen receptor positive (HCC) - ICD9: 174.4, V86.0, ICD10: C50.411, Z17.0 - No concerning findings on exam. - Tolerating arimidex well. - Continue arimidex. - Discussed zometa. Dental clearance form given at last visit. Zometa side effects reviewed last visit. Hand-out given at last visit. Pt. would like to discuss further at next visit. - Mammogram scheduled for at [facility] per Dr. Richmond. - Bone density per Natalie [place]. - Follow up in 3 months. - Pt. aware to call office with any questions/concerns. The patient indicates understanding of these issues and agrees with the plan. All documentation from previous visit of 01/13/23-Dr. Villagomez/myself was copied and pasted, documentation has been reviewed and edited as necessary for today's visit. Laurie Rutledge APRN.CNP [facility] 04-14-2023 History of Presen t illness Narrative Clinical Trial Informed Consent & Screening [facility]VS 1Y21 IRB: 22-840 Real World Treatment Experience of Patients with Breast, Lung, or GI Cancer or Multiple Myeloma Using Remote Symptom Monitoring Patient seen today to obtain clinical trial informed consent. Patient states she does not want to participate in the CAREVIVE study and declined consent. Ana Luisa Babb RN 8:28 AM April 14, 2023 documented in this encounter 01-13-2023 Note HNO ID: [id number] Author: Laurie Rutledge APRN.NOE Service: ? Author Type: Nurse Practitioner Type: Progress Notes Filed: 01/13/2023 12:54 PM Note Text: Chief Complaint Patient presents with: Established Patient: SCP HPI: Jody Deluca is a 77 year old female who presents here today for SCP/breast cancer. Per Dr. Villagomez's previous note: H/o screening mammogram at [facility] on 09/23/2022. There was a 5.6 x 5 mm well-defined nodule in the upper anterior aspect of the RIGHT breast likely representing a small lymph node. Ultrasound was recommended. The report of that study is not available. However, patient underwent an ultrasound-guided core needle biopsy on 10/21/2022. The procedure report describes that 3 core biopsies of a 6 x 5 x 4 mm hypoechoic nodule at the 10 o'clock position of the breast 2 cm from the nipple was successfully carried out. Pathology: Sample from the 10 o'clock position revealed invasive ductal carcinoma, nuclear grade 1/3. Second sample from 11 o'clock position revealed fibrocystic change. ER positive (50%, weak to moderate intensity) SD positive (55%, weak to moderate intensity) HER2 nu 0-1+ on IHC. Patient underwent right breast lumpectomy with stereotactic needle localization and sentinel lymph node biopsy on 11/10/2022. Pathology: A. Right sentinel lymph node biopsy- 2 of 2 lymph nodes negative for metastatic carcinoma. B. Right breast lumpectomy invasive ductal carcinoma Tumor size was 8 mm. Overall grade was 1. Single focus of disease. DCIS and LCIS not identified. Tumor did not extend to skin, nipple or skeletal muscle. Margins were negative. Closest was 3 mm from the inferior margin and 4 mm from the next closest lateral margin. A total of 2 lymph nodes, sentinel were examined. Both were negative for disease. There was no lymphovascular invasion. No dermal lymphovascular invasion. Oncotype DX test in detail with her. Recurrence score 28 indicating 17% risk of distant recurrence at 9 years. Benefit from chemotherapy potentially greater than 15%. -I recommended an adjuvant course of TC but after a balanced discussion of the potential benefits (bearing in mind the continuum of risk from recurrence score 25 up to 100 and uncertain validity in women over age 70) and risks, she declined adjuvant chemotherapy. I told her that was a very reasonable decision. RADIATION:Completed 01/05/23 Done at [facility]. No new concerns today. Pt. here today with her spouse. Appetite: Really good. Energy level: I'm fine. Denies fevers or recent illness. Resp:denies cough or sob Cardiac:denies chest pain/palpitations GI:denies abd pain, n/v, moving bowels regularly :denies dysuria/hematuria Extrem:denies pain Endo:denies hot flashes Neuro:denies symptoms of neuropathy Skin:denies rashes Heme:denies bleeding The ROS is otherwise negative. Past medical history, appointments, medications, allergies reviewed. No changes. EXAM: BP 162/85 Pulse 87 Temp 36.5 ?C (97.7 ?F) (Temporal) Ht 165.1 cm (5' 5 ) Wt 69.9 kg (154 lb) BMI 25.63 kg/m? APPEARANCE Well appearing, alert, in no acute distress, well-hydrated, well nourished. HEART RRR with normal S1 and S2, no murmurs LUNG clear to auscultation BREAST FEMALE R mild radiation erythema LYMPH NODES No cervical lymphadenopathy, No supraclavicular lymphadenopathy, and No axillary lymphadenopathy. ABDOMEN bowel sounds normoactive, soft, non-tender EXTREMITIES No edema NEURO Awake, alert and oriented x 3, Normal gait, and No involuntary motions. SKIN Skin color, texture, turgor normal, no suspicious rashes or lesions ASSESSMENT/PLAN: 1. Malignant neoplasm of upper-outer quadrant of right breast in female, estrogen receptor positive (HCC) - ICD9: 174.4, V86.0, ICD10: C50.411, Z17.0 - No concerning findings on exam. - Reviewed SCP with pt. Copies given. - Discussed follow up plan. - Discussed zometa. Dental clearance form given. Zometa side effects reviewed. Hand-out given. - Discussed arimidex and potential side effects. Hand out given. Rx sent. Advised pt. 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 - Bone density per Natalie Newton. - Follow up with Natalie Newton as scheduled. - Follow up with Dr. Richmond as scheduled. - Follow up in 3 months. - Pt. aware to call office with any questions/concerns. The patient indicates understanding of these issues and agrees with the plan. Discussed case with Dr. Villagomez who agrees with treatment plan. All documentation from previous visit of 12/24/22-Dr. Villagomez was copied and pasted, documentation has been reviewed and edited as necessary for today's visit. Laurie Rutledge APRN.[facility] 01-13-2023 History of Presen t illness Narrative Chief Complaint Patient presents with: Established Patient: [facility] HPI: Jody Deluca is a 77 year old female who presents here today for SCP/breast cancer. Per Dr. Villagomez's previous note: H/o screening mammogram at [facility] on 09/23/2022. There was a 5.6 x 5 mm well-defined nodule in the upper anterior aspect of the RIGHT breast likely representing a small lymph node. Ultrasound was recommended. The report of that study is not available. However, patient underwent an ultrasound-guided core needle biopsy on 10/21/2022. The procedure report describes that 3 core biopsies of a 6 x 5 x 4 mm hypoechoic nodule at the 10 o'clock position of the breast 2 cm from the nipple was successfully carried out. Pathology: Sample from the 10 o'clock position revealed invasive ductal carcinoma, nuclear grade 1/3. Second sample from 11 o'clock position revealed fibrocystic change. ER positive (50%, weak to moderate intensity) SD positive (55%, weak to moderate intensity) HER2 nu 0-1+ on IHC. Patient underwent right breast lumpectomy with stereotactic needle localization and sentinel lymph node biopsy on 11/10/2022. Pathology: A. Right sentinel lymph node biopsy- 2 of 2 lymph nodes negative for metastatic carcinoma. B. Right breast lumpectomy invasive ductal carcinoma Tumor size was 8 mm. Overall grade was 1. Single focus of disease. DCIS and LCIS not identified. Tumor did not extend to skin, nipple or skeletal muscle. Margins were negative. Closest was 3 mm from the inferior margin and 4 mm from the next closest lateral margin. A total of 2 lymph nodes, sentinel were examined. Both were negative for disease. There was no lymphovascular invasion. No dermal lymphovascular invasion. Oncotype DX test in detail with her. Recurrence score 28 indicating 17% risk of distant recurrence at 9 years. Benefit from chemotherapy potentially greater than 15%. -I recommended an adjuvant course of TC but after a balanced discussion of the potential benefits (bearing in mind the continuum of risk from recurrence score 25 up to 100 and uncertain validity in women over age 70) and risks, she declined adjuvant chemotherapy. I told her that was a very reasonable decision. RADIATION:Completed 01/05/23 Done at [facility]. No new concerns today. Pt. here today with her spouse. Appetite: Really good. Energy level: I'm fine. Denies fevers or recent illness. Resp:denies cough or sob Cardiac:denies chest pain/palpitations GI:denies abd pain, n/v, moving bowels regularly :denies dysuria/hematuria Extrem:denies pain Endo:denies hot flashes Neuro:denies symptoms of neuropathy Skin:denies rashes Heme:denies bleeding The ROS is otherwise negative. Past medical history, appointments, medications, allergies reviewed. No changes. EXAM: BP 162/85 Pulse 87 Temp 36.5 C (97.7 F) (Temporal) Ht 165.1 cm (5' 5 ) Wt 69.9 kg (154 lb) BMI 25.63 kg/m APPEARANCE Well appearing, alert, in no acute distress, well-hydrated, well nourished. HEART RRR with normal S1 and S2, no murmurs LUNG clear to auscultation BREAST FEMALE R mild radiation erythema LYMPH NODES No cervical lymphadenopathy, No supraclavicular lymphadenopathy, and No axillary lymphadenopathy. ABDOMEN bowel sounds normoactive, soft, non-tender EXTREMITIES No edema NEURO Awake, alert and oriented x 3, Normal gait, and No involuntary motions. SKIN Skin color, texture, turgor normal, no suspicious rashes or lesions ASSESSMENT/PLAN: 1. Malignant neoplasm of upper-outer quadrant of right breast in female, estrogen receptor positive (HCC) - ICD9: 174.4, V86.0, ICD10: C50.411, Z17.0 - No concerning findings on exam. - Reviewed SCP with pt. Copies given. - Discussed follow up plan. - Discussed zometa. Dental clearance form given. Zometa side effects reviewed. Hand-out given. - Discussed arimidex and potential side effects. Hand out given. Rx sent. Advised pt. 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 - Bone density per Natalie Newton. - Follow up with Natalie Newton as scheduled. - Follow up with Dr. Richmond as scheduled. - Follow up in 3 months. - Pt. aware to call office with any questions/concerns. The patient indicates understanding of these issues and agrees with the plan. Discussed case with Dr. Villagomez who agrees with treatment plan. All documentation from previous visit of 12/24/22-Dr. Villagomez was copied and pasted, documentation has been reviewed and edited as necessary for today's visit. Laurie Rutledge APRN.NOE documented in this encounter 12-24-2022 Note HNO ID: [id number] Author: Marcel Villagomez, DO Service: ? Author Type: Physician Type: Progress Notes Filed: 12/24/2022 9:59 AM Note Text: Oncologic problem(s): 1) pT1b N0 M0 ER/SD positive, HER2 negative stage IA invasive ductal carcinoma of the right breast. HPI: The patient is a 77-year-old otherwise healthy female who had a screening mammogram at [facility] on 09/23/2022. There was a 5.6 x 5 mm well-defined nodule in the upper anterior aspect of the RIGHT breast likely representing a small lymph node. Ultrasound was recommended. The report of that study is not available. However, patient underwent an ultrasound-guided core needle biopsy on 10/21/2022. The procedure report describes that 3 core biopsies of a 6 x 5 x 4 mm hypoechoic nodule at the 10 o'clock position of the breast 2 cm from the nipple was successfully carried out. Pathology: Sample from the 10 o'clock position revealed invasive ductal carcinoma, nuclear grade 1/3. Second sample from 11 o'clock position revealed fibrocystic change. ER positive (50%, weak to moderate intensity) SD positive (55%, weak to moderate intensity) HER2 nu 0-1+ on IHC. Patient underwent right breast lumpectomy with stereotactic needle localization and sentinel lymph node biopsy on 11/10/2022. Pathology: A. Right sentinel lymph node biopsy- 2 of 2 lymph nodes negative for metastatic carcinoma. B. Right breast lumpectomy invasive ductal carcinoma Tumor size was 8 mm. Overall grade was 1. Single focus of disease. DCIS and LCIS not identified. Tumor did not extend to skin, nipple or skeletal muscle. Margins were negative. Closest was 3 mm from the inferior margin and 4 mm from the next closest lateral margin. A total of 2 lymph nodes, sentinel were examined. Both were negative for disease. There was no lymphovascular invasion. No dermal lymphovascular invasion. Presents for ongoing oncologic management. Interim history: Returns today to review Oncotype DX test and develop plan of care. No complaints today. PMH: -Thyroid nodule. PAST SURGICAL HISTORY Procedure Laterality Date BIOPSY THYROID BREAST LUMPECTOMY HX Right 11/10/2022 CATARACT EXTRACTION HX Left COLONOSCOPY, GI 2003,2013 ALLERGIES Allergen Reactions Penicillins Current Outpatient Medications Medication Sig MULTIVITAMIN TAB Take one(1) tablet daily. CALTRATE PLUS TAB Take 1 tablet by mouth once daily. No current facility-administered medications for this visit. Social History Tobacco Use Smoking status: Never Smokeless tobacco: Never Vaping Use Vaping Use: Never used Substance Use Topics Alcohol use: No Drug use: No Family history: 1) Mother--Breast cancer late 60s. Treated with surgery. from stroke age 73. ROS: Constitutional: Denies episodes of fever and night sweats. Not significantly fatigued. Normal appetite. Neuro: Denies ARENAS, vertigo, dizziness and imbalance. Denies symptoms of neuropathy. HEENT: No recent change in voice, vision or hearing. Resp: Denies cough, wheeze and hemoptysis. Denies shortness of breath at rest. Denies FUNES. CVS: Denies exertional chest pain, PND, orthopnea and LE edema. GI: Denies dysgeusia. Denies symptoms of stomatitis. Denies dysphagia and odynophagia. Denies reflux, n/v, change in bowel habits and abdominal pain. : Denies dysuria or gross hematuria. No symptoms of bladder outlet obstruction. Endo: Denies hot flashes. Denies polyuria and polydipsia. Denies heat and cold intolerance. Musculoskeletal: Denies bone, back, joint and muscular pain. Derm: Denies rash. Denies jaundice and diffuse pruritis. Heme: Denies unusual bleeding and unexplained bruising. Psych: Normal mood. PHYSICAL EXAM: Vitals: Blood pressure 158/82, pulse 80, temperature 36.9 ?C (98.5 ?F), height 166.5 cm (5' 5.55 ), weight 70.1 kg (154 lb 8 oz), SpO2 99 %. Well-appearing and in no acute distress. EYES: Sclerae are anicteric bilaterally. LYMPHATIC: There is no palpable cervical, supraclavicular or axillary adenopathy. RESPIRATORY: Inspiratory breath sounds are of normal intensity in all nayak. No rales, wheezes or rhonchi. CARDIOVASCULAR: Rhythm is regular. BREAST: Not examined today. ABDOMEN: The abdomen is nondistended. Extremities: No swelling or edema. SKIN: No jaundice or rash. No petechiae. NEUROLOGIC: vice president sales II-XII are grossly intact. No focal motor weakness. ASSESSMENT/PLAN: (C50.411, Z17.0) Malignant neoplasm of upper-outer quadrant of right breast in female, estrogen receptor positive (HCC) (primary encounter diagnosis) Assessment: -The patient is an otherwise healthy 77-year-old female who recently underwent lumpectomy and sentinel lymph node biopsy for what proved to be a pT1b N0 M0 ER/SD positive, HER2 negative stage IA invasive ductal carcinoma of the right breast. -No clear indication for genetic testing. -Reviewed the results of the Oncotype DX test in det (more content not included)... [facility] 2022 Miscellaneous Notes Rescheduled as directed. Kiley Onofre Please reschedule patient's appointment from 12/14/2022 TO 12/24/2022 @ 9:20. No need to notify patient, she is aware that we do not have her oncotype results back yet. She is aware of new appointment date and time. Kiersten Bledsoe LPN documented in this encounter 11-30-2022 Note HNO ID: [id number] Author: Marcel Villagomez, DO Service: ? Author Type: Physician Type: Progress Notes Filed: 11/30/2022 3:57 PM Note Text: Patient referred by Dr. Pastrana for breast cancer. The impression and plan will be communicated by way of the shared electronic record or faxed under separate cover letter. HPI: The patient is a 76-year-old otherwise healthy female who had a screening mammogram at [facility] on 09/23/2022. There was a 5.6 x 5 mm well-defined nodule in the upper anterior aspect of the RIGHT breast likely representing a small lymph node. Ultrasound was recommended. The report of that study is not available. However, patient underwent an ultrasound-guided core needle biopsy on 10/21/2022. The procedure report describes that 3 core biopsies of a 6 x 5 x 4 mm hypoechoic nodule at the 10 o'clock position of the breast 2 cm from the nipple was successfully carried out. Pathology: Sample from the 10 o'clock position revealed invasive ductal carcinoma, nuclear grade 1/3. Second sample from 11 o'clock position revealed fibrocystic change. ER positive (50%, weak to moderate intensity) SD positive (55%, weak to moderate intensity) HER2 nu 0-1+ on IHC. Patient underwent right breast lumpectomy with stereotactic needle localization and sentinel lymph node biopsy on 11/10/2022. Pathology: A. Right sentinel lymph node biopsy- 2 of 2 lymph nodes negative for metastatic carcinoma. B. Right breast lumpectomy invasive ductal carcinoma Tumor size was 8 mm. Overall grade was 1. Single focus of disease. DCIS and LCIS not identified. Tumor did not extend to skin, nipple or skeletal muscle. Margins were negative. Closest was 3 mm from the inferior margin and 4 mm from the next closest lateral margin. A total of 2 lymph nodes, sentinel were examined. Both were negative for disease. There was no lymphovascular invasion. No dermal lymphovascular invasion. Healing well. No complaints today. PMH: -Thyroid nodule. PAST SURGICAL HISTORY Procedure Laterality Date BIOPSY THYROID BREAST LUMPECTOMY HX Right 11/10/2022 CATARACT EXTRACTION HX Left COLONOSCOPY, GI 2003,2013 ALLERGIES Allergen Reactions Penicillins Current Outpatient Medications Medication Sig MULTIVITAMIN TAB Take one(1) tablet daily. CALTRATE PLUS TAB Take 1 tablet by mouth once daily. No current facility-administered medications for this visit. Social History Tobacco Use Smoking status: Never Smokeless tobacco: Never Substance Use Topics Alcohol use: No Drug use: No Family history: 1) Mother--Breast cancer late 60s. Treated with surgery. from stroke age 71. ROS: Constitutional: Denies episodes of fever and night sweats. Not significantly fatigued. Normal appetite. Neuro: Denies ARENAS, vertigo, dizziness and imbalance. Denies symptoms of neuropathy. HEENT: No recent change in voice, vision or hearing. Resp: Denies cough, wheeze and hemoptysis. Denies shortness of breath at rest. Denies FUNES. CVS: Denies exertional chest pain, PND, orthopnea and LE edema. GI: Denies dysgeusia. Denies symptoms of stomatitis. Denies dysphagia and odynophagia. Denies reflux, n/v, change in bowel habits and abdominal pain. : Denies dysuria or gross hematuria. No symptoms of bladder outlet obstruction. Endo: Denies hot flashes. Denies polyuria and polydipsia. Denies heat and cold intolerance. Musculoskeletal: Denies bone, back, joint and muscular pain. Derm: Denies rash. Denies jaundice and diffuse pruritis. Heme: Denies unusual bleeding and unexplained bruising. Psych: Normal mood. PHYSICAL EXAM: Vitals: Blood pressure 165/82, pulse 85, temperature 37 ?C (98.6 ?F), temperature source Temporal, height 165.1 cm (5' 5 ), weight 70.8 kg (156 lb). Well-appearing and in no acute distress. EYES: Sclerae are anicteric bilaterally. ENT: Oral mucosa is unremarkable. There is no sign of thrush or mucositis. LYMPHATIC: There is no palpable cervical, supraclavicular or axillary adenopathy. RESPIRATORY: Inspiratory breath sounds are of normal intensity in all nayak. No rales, wheezes or rhonchi. CARDIOVASCULAR: Rhythm is regular. Normal intensity S1/S2. BREAST: acted as recovery advocate. The periareolar incision is well-healed. There are some erythematous blush around but it blanches easily and there is no warmth. No induration. Axillary incision well-healed. ABDOMEN: The abdomen is nondistended. No organomegaly. No tenderness. Extremities: No swelling or edema. SKIN: No jaundice or rash. No petechiae. NEUROLOGIC: vice president sales II-XII are grossly intact. No focal motor weakness. ASSESSMENT/PLAN: (C50.411, Z17.0) Malignant neoplasm of upper-outer quadrant of right breast in female, estrogen receptor positive (HCC) (primary encounter diagnosis) Assessment: -The patient is an otherwise healthy 76-year-old female who recently underwent lumpectomy and sentinel lymph node biop (more content not included)... [facility] 11-30-2022 History of Presen t illness Narrative Patient referred by Dr. Pastrana for breast cancer. The impression and plan will be communicated by way of the shared electronic record or faxed under separate cover letter. HPI: The patient is a 76-year-old otherwise healthy female who had a screening mammogram at [facility] on 09/23/2022. There was a 5.6 x 5 mm well-defined nodule in the upper anterior aspect of the RIGHT breast likely representing a small lymph node. Ultrasound was recommended. The report of that study is not available. However, patient underwent an ultrasound-guided core needle biopsy on 10/21/2022. The procedure report describes that 3 core biopsies of a 6 x 5 x 4 mm hypoechoic nodule at the 10 o'clock position of the breast 2 cm from the nipple was successfully carried out. Pathology: Sample from the 10 o'clock position revealed invasive ductal carcinoma, nuclear grade 1/3. Second sample from 11 o'clock position revealed fibrocystic change. ER positive (50%, weak to moderate intensity) SD positive (55%, weak to moderate intensity) HER2 nu 0-1+ on IHC. Patient underwent right breast lumpectomy with stereotactic needle localization and sentinel lymph node biopsy on 11/10/2022. Pathology: A. Right sentinel lymph node biopsy- 2 of 2 lymph nodes negative for metastatic carcinoma. B. Right breast lumpectomy invasive ductal carcinoma Tumor size was 8 mm. Overall grade was 1. Single focus of disease. DCIS and LCIS not identified. Tumor did not extend to skin, nipple or skeletal muscle. Margins were negative. Closest was 3 mm from the inferior margin and 4 mm from the next closest lateral margin. A total of 2 lymph nodes, sentinel were examined. Both were negative for disease. There was no lymphovascular invasion. No dermal lymphovascular invasion. Healing well. No complaints today. PMH: -Thyroid nodule. PAST SURGICAL HISTORY Procedure Laterality Date BIOPSY THYROID BREAST LUMPECTOMY HX Right 11/10/2022 CATARACT EXTRACTION HX Left COLONOSCOPY, GI 2003,2013 ALLERGIES Allergen Reactions Penicillins Current Outpatient Medications Medication Sig MULTIVITAMIN TAB Take one(1) tablet daily. CALTRATE PLUS TAB Take 1 tablet by mouth once daily. No current facility-administered medications for this visit. Social History Tobacco Use Smoking status: Never Smokeless tobacco: Never Substance Use Topics Alcohol use: No Drug use: No Family history: 1) Mother--Breast cancer late 60s. Treated with surgery. from stroke age 71. ROS: Constitutional: Denies episodes of fever and night sweats. Not significantly fatigued. Normal appetite. Neuro: Denies ARENAS, vertigo, dizziness and imbalance. Denies symptoms of neuropathy. HEENT: No recent change in voice, vision or hearing. Resp: Denies cough, wheeze and hemoptysis. Denies shortness of breath at rest. Denies FUNES. CVS: Denies exertional chest pain, PND, orthopnea and LE edema. GI: Denies dysgeusia. Denies symptoms of stomatitis. Denies dysphagia and odynophagia. Denies reflux, n/v, change in bowel habits and abdominal pain. : Denies dysuria or gross hematuria. No symptoms of bladder outlet obstruction. Endo: Denies hot flashes. Denies polyuria and polydipsia. Denies heat and cold intolerance. Musculoskeletal: Denies bone, back, joint and muscular pain. Derm: Denies rash. Denies jaundice and diffuse pruritis. Heme: Denies unusual bleeding and unexplained bruising. Psych: Normal mood. PHYSICAL EXAM: Vitals: Blood pressure 165/82, pulse 85, temperature 37 C (98.6 F), temperature source Temporal, height 165.1 cm (5' 5 ), weight 70.8 kg (156 lb). Well-appearing and in no acute distress. EYES: Sclerae are anicteric bilaterally. ENT: Oral mucosa is unremarkable. There is no sign of thrush or mucositis. LYMPHATIC: There is no palpable cervical, supraclavicular or axillary adenopathy. RESPIRATORY: Inspiratory breath sounds are of normal intensity in all nayak. No rales, wheezes or rhonchi. CARDIOVASCULAR: Rhythm is regular. Normal intensity S1/S2. BREAST: acted as recovery advocate. The periareolar incision is well-healed. There are some erythematous blush around but it blanches easily and there is no warmth. No induration. Axillary incision well-healed. ABDOMEN: The abdomen is nondistended. No organomegaly. No tenderness. Extremities: No swelling or edema. SKIN: No jaundice or rash. No petechiae. NEUROLOGIC: vice president sales II-XII are grossly intact. No focal motor weakness. ASSESSMENT/PLAN: (C50.411, Z17.0) Malignant neoplasm of upper-outer quadrant of right breast in female, estrogen receptor positive (HCC) (primary encounter diagnosis) Assessment: -The patient is an otherwise healthy 76-year-old female who recently underwent lumpectomy and sentinel lymph node biopsy for what proved to be a pT1b N0 M0 ER/SD positive, HER2 negative stage IA invasive ductal carcinoma of the right breast. -No clear indication for genetic testing. -I had a detailed discussion with patient regarding the adjuvant treatment modalities of breast cancer. I discussed the need for aromatase inhibitor therapy including the rationale, potential side effects and duration of therapy. Also reviewed the role of bisphosphonate therapy. -I spent the bulk of time discussing the decision for adjuvant chemotherapy based on traditional clinical and pathologic variables and further explained molecular testing and its role in aiding the decision regarding adjuvant chemotherapy. I recommended an Oncotype DX test and discussed with her how this test is performed and how the results would be used in determining the potential benefit of adjuvant chemotherapy. Plan: -Oncotype Dx test. -She is scheduled to see Dr. Richmond for opinion on adjuvant radiation. -Office visit in about 2 weeks to review Oncotype DX results and finalize plan. I spent a total of 60 minutes on the date of the service which included preparing to see the patient, [id number] patient care, completing clinical documentation, obtaining and/or reviewing separately obtained history, performing a medically appropriate examination, counseling and educating the patient/family/caregiver, ordering medications, tests, or procedures, communicating results to the patient/family/caregiver, and care coordination (not separately reported). Marcel Villagomez DO documented in this encounter 11-22-2022 Miscellaneous Notes PT scheduled 1st attempt: LM When Pt returns call please update insurance and schedule first New Patient appointment with . Notes: BREAST CANCER/REF PROV:RENAN PASTRANA Once completed please document in this encounter. Thank you! Summary: NEW PATIENT Received referral and placed in Nurse Mail box for review. DX: BREAST CANCER REF PROV: RENAN PASTRANA INS: MDCR documented in this encounter documented in this encounter Evaluation note* Diagnosis Malignant neoplasm of upper-outer quadrant of right breast in female, estrogen receptor positive (HCC)- Primary documented in this encounter Summary Purpose Family History No Family History Records Found Advance Directives No Advanced Directives Records Found Additional Source Comments Source Comments (unrecognize d section and content) In the event this informatio n is protected by the Federal Confidentiality of Alcohol and Drug Abuse Patient Records regulations: The Federal rules restrict any use of the information to criminally investigate or prosecute any alcohol or drug abuse patient.In the event this information is protected by the Federal Confidentiality of Alcohol and Drug Abuse Patient Records regulations: The Federal rules restrict any use of the information to criminally investigate or prosecute any alcohol or drug abuse patient.In the event this information is protected by the Federal Confidentiality of Alcohol and Drug Abuse Patient Records regulations: The Federal rules restrict any use of the information to criminally investigate or prosecute any alcohol or drug abuse patient.In the event this information is protected by the Federal Confidentiality of Alcohol and Drug Abuse Patient Records regulations: The Federal rules restrict any use of the information to criminally investigate or prosecute any alcohol or drug abuse patient.In the event this information is protected by the Federal Confidentiality of Alcohol and Drug Abuse Patient Records regulations: The Federal rules restrict any use of the information to criminally investigate or prosecute any alcohol or drug abuse patient. Reason for Visit (unrecogniz ed section and content) Reason Comments New Patient Evaluation Reason Comments Appointment Reason Comments Established Patient SCP Reason Comments Research CAREVIVE Presentatio n Care Teams (unrecognized sec tion and content) Content Development Specialist Relationship Specialty Start Date End Date Salomon Tong MD [address] [place] [address] PCP - General 07/27/04 Marcel Villagomez, DO [address] [place] [address] Hematology/Oncology 11/30/22 Content Development Specialist Relationship Specialty Start Date End Date Salomon Tong MD [address] [place] [address] PCP - General 07/27/04 Marcel Villagomez, DO [address] [place] [address] Hematology/Oncology 11/30/22 Content Development Specialist Relationship Specialty Start Date End Date Salomon Tong MD [address] [place], [place] [address] PCP - General 07/27/04 Marcel Villagomez, DO [address] [place] [address] Hematology/Oncology 11/30/22 Content Development Specialist Relationship Specialty Start Date End Date Salomon Tong MD [address] [place] [address] PCP - General 07/27/04 Marcel Villagomez, DO [address] [place] [address] Hematology/Oncology 11/30/22 INFORMATION SOURCE (unrecogn ized section and content) FOR RECORDS PERTAINING TO PATIENTS WHO ARE OR HAVE BEEN ENROLLED IN A CHEMICAL DEPENDENCY/SUBSTANCEABUSE PROGRAM, SOME INFORMATION MAY BE OMITTED. This clinical summary was aggregated from multiple sources. Caution should be exercised in using it in the provision of clinical care. This summary normalizes information from multiple sources, and as a consequence, information in this document may materially change the coding, format and clinical context of patient data. In addition, data may be omitted in some cases. CLINICAL DECISIONS SHOULD BE BASED ON THE PRIMARY CLINICAL RECORDS. [facility] [employer] [facility]. provides no warranty or guarantee of the accuracy or completeness of information in this document.
== END | disposition home or self-care (01) ==
LOC: OPBD 08:19
PROVIDERS: PCP Family Medicine; Referring Provider Nurse Practitioner Women's Health; Visit Provider Nurse Practitioner Women's Health
DX: Z12.31 Encounter for screening mammogram for malignant neoplasm of breast (principal); C50.911 Malignant neoplasm of unspecified site of right female breast
CPT/HCPCS: 77080

== ENCOUNTER → 2024-10-02 | Outpatient (CLI) | payer MEDICARE, OTHER, SELFPAY ==
--- NOTE | 2024-10-02 08:10 | BI_ITS ---
MAMMOGRAPHY - BILATERAL SCREENING 3-D TOMOSYNTHESIS REASON FOR EXAM: Female, 78 years old. annual screening -- treated breast cancer PERTINENT HISTORY: No significant family history. TECHNIQUE: 2-D mammograms and 3-D Tomosynthesis of the breast (s) were performed. CAD was performed. COMPARISON: 09/27/2023 FINDINGS: The breast composition is composed of scattered fibroglandular density. Scattered benign calcifications are seen. No dense spiculated masses or suspicious microcalcifications are identified. No architectural distortion is identified. There is no skin thickening or retraction. There has been no significant change since the prior study. Interval lumpectomy and change in scarring in the retroareolar right breast. BI/SCRN MAMM (CAD)W/GUILHREME BILAT IMPRESSION: No mammographic signs of malignancy. Routine yearly mammograms recommended. ASSESSMENT CATEGORY: BIRADS Category 2: Benign. A letter regarding these results will be sent to the patient by the facility within 30 days. FOLLOW UP RECOMMENDATION: Yearly follow up mammogram recommended. (A) Approximately 10% of breast cancers are not detected by mammography. A normal mammogram should not delay biopsy of a clinically suspicious abnormality. Electronically Signed: Duglas Weston MD at 15:37 EST ,
== END | disposition home or self-care (01) ==
LOC: OPBI 08:10
PROVIDERS: PCP Family Medicine; Referring Provider Surgery; Visit Provider Surgery
DX: Z12.31 Encounter for screening mammogram for malignant neoplasm of breast (principal)
CPT/HCPCS: 77063; 77067

== ENCOUNTER 2025-01-22 06:25 | Day surgery (SDC) | payer MEDICARE, OTHER, SELFPAY ==
[2025-01-22] VITALS (8 sets, daily range): BP systolic 99–187; BP diastolic 51–87; PULSE 73–105; RESP 12–18; TEMP 35.8–36.9; O2SAT 98–100; BMI 25.9
--- NOTE | 2025-01-22 07:01 | PRE.ANES_ITS ---
ASA Classification* ASA Classification ASA Classification: 2 Assessment & Plan Anesthesia* Anesthesia Assessment Anesthesia Assessment: Discussed sedation and/or anesthesia options, risks, benefits, and alternatives with patient/parents/legal guardian/POA. Questions invited. The patient/parents/legal guardian/POA seems to understand and agrees to proceed with anesthesia plan. Reviewed the physical assessment, medical history, allergy history and patient home medications list prior to surgery/procedure/anesthetic and documented any changes. Performed airway and anesthesia risk assessments. 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 When Was Last Pacemaker Check QUESTION #4 FULL TEXT: You/Your Family Experience fever (hyperthermia) with Anesthesia Last Oral Intake Last Oral intake: Last Oral Intake NPO since 18:30 01/22/25 06:46 Meds taken in AM with sips of water? Meds patient instructed to take am of surgery PONV PONV - program director/music director: PONV - program director/music director Female Yes 01/21/25 12:01 HX of Motion Sickness No 01/21/25 12:01 HX of N/V After Surgery No 01/21/25 12:01 Non-Smoker Yes 01/21/25 12:01 Duration of Surgery greater No 01/21/25 12:01 than 60 minutes Number of Risk Factors 2 01/21/25 12:01 PONV Score Moderate Risk 01/21/25 12:01 Height & Weight Height & Weight: Anesthesia: Height & Weight Height 5 ft 5 in 01/22/25 06:46 Weight: 70.6 kg 01/22/25 06:46 Body Mass Index (BMI) 25.9 01/22/25 06:46 Respiratory Assessment Respiratory Assessment - program director/music director: Respiratory Tract Infection Hx - program director/music director Hx Respiratory Tract Infection No 01/21/25 12:01 STOP Sleep Apnea STOP Sleep Apnea - program director/music director: STOP Sleep Apnea - program director/music director Hx Hypertension No 01/21/25 12:01 Hx Sleep Apnea No 01/21/25 12:01 CPAP BIPAP Do you snore loudly (louder No 01/21/25 12:01 than talking or can be heard Do you often feel tired/ No 01/21/25 12:01 fatigued/ sleepy during daytime? Has anyone observed you stop No 01/21/25 12:01 breathing during sleep? STOP Results Negative 01/21/25 12:01 QUESTION #5 FULL TEXT : Do you snore loudly (louder than talking or can be heard through closed doors)? 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 Specify any problems Hx of Preganancy in last 3 N/A 01/21/25 12:01 Months Nurse Filling Out Transfusion NBUCHER 01/21/25 12:01 & Questions: Date: 01/21/25 01/21/25 12:01 Time: 12:02 01/21/25 12:01 Patient unable to answer at this time (ie. confused, unrespo /Reproduction History /Reproductive History - program director/music director: /Reproductive Hx- program director/music director Hx Now No 01/21/25 12:01 Gestational Age (in weeks): EDC: Hx Hx Para Hx Section SAB No 01/21/25 12:01 [facility] Medical History (Updated 01/21/25 @ 12:04 by Socorro Rayo) Cancer Wears glasses Post-menopausal Non-smoker Breast cancer in female Abnormal ultrasound of breast Home Medications ?Medication ?Instructions ?Recorded ?Last Taken ?Type multivitamin with folic acid 400 1 tab PO DAILY 01/21/25 History mcg tablet oxyquinoline 0.025 %-sodium lauryl See Rx Instructions vaginal 01/17/24 Unknown Rx sulfate 0.01 % vaginal gel .COMPLEX #113.4 grams (Trimo-Escalera Jelly) omega-3 fatty acids-fish oil 300 1 cap PO DAILY 01/21/25 History mg-500 mg capsule (Fish Oil) turmeric 400 mg capsule 400 mg PO DAILY 12/04/24 History anastrozole 1 mg tablet 1 mg PO QHS 01/21/25 5 History Allergy/AdvReac Type Severity Reaction Status Date / Time Penicillins Allergy Rash Verified 01/22/25 06:45 Family History Mother Breast cancer Surgical History S/P lumpectomy, right breast Hx of left cataract extraction History of colonoscopy (~2013) Social History Smoking Status: Never smoker alcohol intake: never substance use type: does not use caffeine: Yes what type of physical activity do you participate in: walking frequency: 3-4 times per week duration: 15-30 minutes/day seatbelt use: always do you feel safe at home: Yes additional social history: -Kian Patient and are both retired Review of Systems (Anesthesia) ROS Narrative System reviewed and no additional complaints, except as documented. Physical Exam Const alert, oriented x3 and average body habitus Resp normal respiratory effort, normal air movement and clear to auscultation bilaterally Cardio regular rate, regular rhythm, no murmurs and diaphoretic
--- NOTE | 2025-01-22 07:27 | PCM.HP.BLA ---
History and Physical Date of Admission: 01/22/25 Date of Service: 12/04/24 MR#: [id number] Acct: [id number] Name: GAIL ORTEGA Rep #: [id number] : 1945 Provider: Dr. Bruce Domínguez MD Age/Sex: 78/F Location: [facility] Status: Signed Intake Vital Signs 11/15/2512:11 12/04/2506:53 Height 5 ft 5 in 5 ft 5 in Weight: 159 lb 8 oz BMI 26.5 BP 177/97 H Blood Pressure Location Rt brachial Position Sitting Respiration 18 Pulse 100 Pulse Source Monitor Temp 97.2 F L Temp Source Temporal Pulse Oximetry (%) 100 Oxygen Delivery Method room air Intake Visit Reasons: COLONOSCOPY Chief Complaint: colonoscopy Is patient in pain?: No Allergies Penicillins Allergy (Verified 12/04/24 07:54) Rash Medications ?Medication ?Instructions ?Recorded ?Confirmed ?Type multivitamin with folic acid 400 1 tab PO DAILY 11/20/14 12/04/24 History mcg tablet oxyquinoline 0.025 %-sodium lauryl See Rx Instructions vaginal 01/17/24 12/04/24 Rx sulfate 0.01 % vaginal gel .COMPLEX #113.4 grams (Trimo-Secalera Jelly) omega-3 fatty acids-fish oil 300 cap PO 12/04/24 12/04/24 History mg-500 mg capsule (Fish Oil) turmeric 400 mg capsule mg PO 12/04/24 12/04/24 History Have you fallen in the past year?: No PFSH Medical History Wears glasses Post-menopausal Non-smoker Breast cancer in female Abnormal ultrasound of breast Surgical History S/P lumpectomy, right breast Hx of left cataract extraction History of colonoscopy (~2013) Family History Mother Breast cancer Social History Smoking Status: Never smoker alcohol intake: never substance use type: does not use caffeine: Yes what type of physical activity do you participate in: walking frequency: 3-4 times per week duration: 15-30 minutes/day seatbelt use: always do you feel safe at home: Yes additional social history: -Kian Patient and are both retired HPI HPI HPI: Patient is a 78-year-old female who is known to me for a history of right breast cancer status post right breast lumpectomy and sentinel lymph node biopsy 11/10/2022. She was last seen in our clinic 04/17/2024. She presents for need to schedule screening colonoscopy secondary to duration since last colonoscopy. They are referred for surgical consultation from Ms. Natalie Newton NP and Dr. Tong. Patient has had prior colonoscopy. She shares this was completed 10 years ago at an [facility] and there were no findings so she was given a 10-year follow-up. Patient has no personal history of colon cancer, inflammatory bowel disease, or diverticulitis. They describe their bowel habits as normal with some infrequent constipation (estimating 1 time per week). They have approximately 1-2 bowel movements per day and spend roughly 5 minutes on the toilet generally without significant straining. They have not noticed recent bleeding or dark stools. They do regularly take fiber supplements. Patient has no family history of colon cancer, inflammatory bowel disease, or diverticulitis.. The patient's weight is stable. The patient is not prescribed anticoagulants/blood thinners but she does regularly use turmeric and fish oil. Relevant prior abdominal surgical history includes: None Patient does not have a significant history of GERD/heartburn ROS General General: No weight change, appetite, fatigue, colon cancer, breast cancer or weakness HEENT HEENT: No difficulty swallowing, eye injury, eye surgery, swollen glands or hoarseness Endo Endocrine: No thyroid disease, diabetes mellitus, thyroid cancer, Hair loss, heat intolerance or cold intolerance Breast Breast: Yes abnormal mammogram and abnormal US; No left breast lump, right breast lump, nipple discharge, breast pain or breast enlargement Musc Musculoskeletal: No back problems, arthritis, rheumatoid arthritis, gout or joint pain Cardio Cardiovascular: No murmur, pacemaker, heart disease, atrial fibrillation, high blood pressure, heart attack, heart stent, palpitations, shortness of breat with exertion or chest pain Psych Psychiatric: No depression, anxiety or hearing voices Resp Respiratory: No shortness of breath, No sleep apnea, No cough, No COPD, No asthma, No emphysema and No wheezing Gastro Gastrointestinal: No abdominal pain, No nausea or vomiting, No diarrhea, No constipation, No blood in stool, No acid reflux, No hemorrhoids, No ulcers, No gallbladder problem and No black,tarry stools Terrell Hematologic: No blood thinners, No blood disorders, No bleeding, No anemia and No blood clots Neuro Neurologic: No weakness Exam Const General: cooperative, healthy appearing, comfortable and well developed Orientation: alert, awake and oriented x3 Resp Effort & Inspection: normal respiratory effort GI Other: Nondistended, soft, indenting impression of supraumbilical skin not actually representing a scar, no visible herniation, nontender to palpation x 4 quadrants Assessment and Plan Assessment and Plan (1) Screening for colon cancer: Status: Acute Comment: Patient is a 78-year-old female who is known to me from prior treatment of right-sided breast cancer but presents today for updating her screening colonoscopy history. She is at average risk for colon cancer and has no history of polyps with 2 prior colonoscopy exams. Further, she denies any interval development of GI?related symptoms. I advised her that there is no consensus guideline on screening beyond the age of 75, but given that she is in such a reassuring state of health presently I find it reasonable to proceed as planned. No review of both the prep and procedure were given. Neither patient nor offered any additional questions. Plan: Plan will be to complete colonoscopy on first mutually agreeable date under local MAC. Pre-procedure prep discussed and paper instructions provided. Patient was asked to hold turmeric and fish oil for 1 week prior to her procedure to minimize her bleeding risk with any biopsies obtained during the procedure. Patient is also made aware that she will need to have a tractor trailer truck driver with her the day of the procedure. I have examined the patient and the H&P has been reviewed. There are no clinical changes since date of exam. Patient informs she completed prep for today's procedure and output is now clear. She denies any change to her bowel habits otherwise. She also confirms that she has held her turmeric supplement for the last week in anticipation of possible biopsies. Procedure is discussed as an overview and neither patient nor her have any additional questions. Proceed to endoscopy suite for colonoscopy as discussed above.
--- NOTE | 2025-01-22 08:36 | OP.COLON_ITS ---
Patient Name: Jody Deluca Procedure Date: 01/22/2025 7:50 AM Date of : 1945 Age: 79 Procedure: Colonoscopy Indications: Screening for colorectal malignant neoplasm Providers: Bruce Domínguez MD Medicines: See the Anesthesia note for documentation of the administered medications Patient Profile: Last Colonoscopy: 10 years ago. Complications: No immediate complications. Estimated blood loss: None. Procedure: Pre-Anesthesia Assessment: - The heart rate, respiratory rate, oxygen saturations, blood pressure, adequacy of pulmonary ventilation, and response to care were monitored throughout the procedure. After I obtained informed consent, the scope was passed under direct vision. Throughout the procedure, the patient's blood pressure, pulse, and oxygen saturations were monitored continuously. The colonoscope was introduced through the anus and advanced to the cecum, identified by the appendiceal orifice, ileocecal valve and palpation. The colonoscopy was somewhat difficult due to poor bowel prep. Successful completion of the procedure was aided by lavage. The patient tolerated the procedure well. The quality of the bowel preparation was fair. Scope In: 7:56:47 AM Scope Withdrawal Time 0 hours 16 minutes 38 seconds Scope Out: 8:27:15 AM Total Procedure Duration Time 0 hours 30 minutes 28 seconds Findings: The perianal and digital rectal examinations were normal. Pertinent negatives include normal sphincter tone and no palpable rectal lesions. A few medium-sized localized angioectasias without bleeding were found in the sigmoid colon. No biopsies or other specimens were collected for this exam. Internal hemorrhoids were found during retroflexion. The hemorrhoids were medium-sized and Grade I (internal hemorrhoids that do not prolapse). No biopsies or other specimens were collected for this exam. A foreign body was found in the proximal transverse colon and in the ascending colon. No biopsies or other specimens were collected for this exam. Impression: - Preparation of the colon was fair. - A few non-bleeding colonic angioectasias. No specimens collected. - Internal hemorrhoids. No specimens collected. - Foreign body in the proximal transverse colon and in the ascending colon. Recommendation: - Discharge patient to home (via wheelchair). - Resume previous diet today. - Continue present medications. - Repeat colonoscopy in 5 years for screening purposes. Procedure Code(s): --- Professional --- G0121, Colorectal cancer screening; colonoscopy on individual not meeting criteria for high risk Diagnosis Code(s): --- Professional --- Z12.11, Encounter for screening for malignant neoplasm of colon K64.0, First degree hemorrhoids K55.20, Angiodysplasia of colon without hemorrhage T18.4XXA, Foreign body in colon, initial encounter CPT copyright 2021 [employer]. All rights reserved. The codes documented in this report are preliminary and upon buying intern review may be revised to meet current compliance requirements. Bruce Domínguez MD 01/22/2025 8:36:01 AM This report has been signed electronically. Number of Addenda: 0 Note Initiated On: 01/22/2025 7:50 AM
--- NOTE | 2025-01-22 08:36 | OP.CCLET_ITS ---
01/22/2025 Salomon Tong Re : Colonoscopy procedure for Jody Deluca Dear Alycia This procedure was performed on Wednesday, January 22, 2025. My impressions and recommendations are as follows: Impressions : - Preparation of the colon was fair. - A few non-bleeding colonic angioectasias. No specimens collected. - Internal hemorrhoids. No specimens collected. - Foreign body in the proximal transverse colon and in the ascending colon. Recommendations : - Discharge patient to home (via wheelchair). - Resume previous diet today. - Continue present medications. - Repeat colonoscopy in 5 years for screening purposes. My findings are described in the full procedure note, which is enclosed. If I can be of further assistance, please feel free to contact me at Doctor phone number(s): , Work: . Sincerely, Bruce Domínguez MD 01/22/2025 8:36:01 AM This report has been signed electronically.
--- NOTE | 2025-01-22 09:29 | PCM.POST.ANE ---
Anesthesia: Postop Eval I Current Vital Signs Temperature: 97.8 F Pulse Rate: 82 Blood Pressure: 105/74 Respiratory Rate: 16 Pulse Ox: 99 Assessment Airway patent: Yes Spontaneous unlabored respirations: Yes nausea: No Vomiting: No Anesthesia Complication: No Fluid Hydration Crystalloid volume administer (ml): 30 Total IV fluid infused: 30 Progress Note Anesthesia document: Postop Eval 1 completed: Yes
--- NOTE | 2025-01-22 09:36 | POSTOPAN2_ITS ---
Anesthesia Postop Eval I Sum Postop Eval Completion status Anesthesia document: Postop Eval 1 completed: Yes Anesthesia Postop Eval I Summary Anesthesia Postop Eval I Summary: Anesthesia Postop Eval I: Assessment Summary Airway patent Yes 01/22/25 09:29 FOURDRINIER [email or web address] [email or web address] Spontaneous unlabored Yes 01/22/25 09:29 FOURDRINIER WIRE [email or web address] respirations Mental status nausea No 01/22/25 09:29 FOURDRINIER WIRE [email or web address].[email or web address] Vomiting No 01/22/25 09:29 FOURDRINIER WIRE [email or web address] Anesthesia Postop Eval I: Fluid Summary Crystalloid volume administer 30 01/22/25 09:29 FOURDRINIER [email or web address] [email or web address] (ml) Colloids volume administered ( ml) Blood Product volume administered (ml) Total IV fluid infused 30 01/22/25 09:29 FOURDRINIER WIRE [email or web address].[email or web address] Anesthesia Postop Eval I: Summary Notes Anesthesia Complication No 01/22/25 09:29 FOURDRINIER [email or web address] [email or web address] Anesthesia Complication Comment: Post-operative progress note Anesthesia: Postop Eval II Evaluation Mental status: Awake Pain Level: 0 nausea: No Vomiting: No Complications Anesthesia Complication: No
--- NOTE | 2025-01-22 09:36 | PCM.POSTANE2 ---
Anesthesia Postop Eval I Sum Postop Eval Completion status Anesthesia document: Postop Eval 1 completed: Yes Anesthesia Postop Eval I Summary Anesthesia Postop Eval I Summary: Anesthesia Postop Eval I: Assessment Summary Airway patent Yes 01/22/25 09:29 CONCRETE BUSTER [email or web address].[email or web address] Spontaneous unlabored Yes 01/22/25 09:29 CONCRETE BUSTER OPERATOR.[email or web address] respirations Mental status nausea No 01/22/25 09:29 CONCRETE BUSTER OPERATOR.[email or web address] Vomiting No 01/22/25 09:29 CONCRETE BUSTER OPERATOR.[email or web address] Anesthesia Postop Eval I: Fluid Summary Crystalloid volume administer 30 01/22/25 09:29 CONCRETE BUSTER OPERATOR.TNES (ml) Colloids volume administered ( ml) Blood Product volume administered (ml) Total IV fluid infused 30 01/22/25 09:29 CONCRETE BUSTER OPERATOR.TNES Anesthesia Postop Eval I: Summary Notes Anesthesia Complication No 01/22/25 09:29 CONCRETE BUSTER OPERATOR.TNES Anesthesia Complication Comment: Post-operative progress note Anesthesia: Postop Eval II Evaluation Mental status: Awake Pain Level: 0 nausea: No Vomiting: No Complications Anesthesia Complication: No
== END 2025-01-22 09:23 | disposition home or self-care (01) ==
LOC: EN 06:26 → AC 06:28
PROVIDERS: PCP Family Medicine; Referring Provider Family Medicine; Visit Provider Surgery
PROC: 0DJD8ZZ Inspection of Lower Intestinal Tract, Via Natural or Artificial Opening Endoscopic (ICD-10-PCS; CPT 45378; principal; 2025-01-22 07:25)
DX: Z12.11 Encounter for screening for malignant neoplasm of colon (principal); T18.9XXA Foreign body of alimentary tract, part unspecified, initial encounter; K64.0 First degree hemorrhoids; K55.20 Angiodysplasia of colon without hemorrhage; Z85.3 Personal history of malignant neoplasm of breast; Z80.3 Family history of malignant neoplasm of breast
CPT/HCPCS: G0121; A4216

== ENCOUNTER → 2025-10-10 | Outpatient (CLI) | payer MEDICARE, OTHER, SELFPAY ==
--- NOTE | 2025-10-10 08:00 | BI_ITS ---
EXAM: SCRN MAMM (CAD)W/GUILHERME BILAT DATE: 10/10/2025 CLINICAL HISTORY: F, Age 79 y/o , ANNUAL SCREENING H/O BREAST CANCER TECHNIQUE: Procedure Code: [id number] Modality: MG Procedure: SCRN MAMM (CAD)W/GUILHERME BILAT COMPARISON: Prior exam(s) were compared FINDINGS: TISSUE DENSITY: There are scattered areas of fibroglandular density. Bilateral Breast Mammographic Findings: No significant masses, calcifications or other abnormalities are identified. Postsurgical changes in the right breast and the right axilla. BI/SCRN MAMM (CAD)W/GUILHERME BILAT IMPRESSION: No mammographic evidence of malignancy. OVERALL FINAL ASSESSMENT BI-RADS 2: BENIGN RECOMMENDATION: Routine annual follow-up in 1 Year Additional Recommendation none A letter with findings and recommendations will be mailed to the patient. Reading Location: [id number]
== END | disposition home or self-care (01) ==
LOC: OPBI 07:45
PROVIDERS: PCP Family Medicine; Referring Provider Student in an Organized Health Care Education/Training Program; Visit Provider Student in an Organized Health Care Education/Training Program
DX: Z12.31 Encounter for screening mammogram for malignant neoplasm of breast (principal); Z85.3 Personal history of malignant neoplasm of breast
CPT/HCPCS: 77063; 77067